=== PATIENT | female | born 1995 | race Caucasian/White ===

== ENCOUNTER → 2018-07-06 13:15 | Outpatient (CLI) | payer OTHER, SELFPAY ==
[2018-07-06 15:01] LABS: Basophils % 0.4 % (0.1-2.0); Eosinophils # 0.1 K/mm3 (0.0-0.4); Eosinophils % 1.2 % (0.1-12.0); Hematocrit 37.2 % (37.0-47.0); Hemoglobin 12.4 g/dL (12.2-16.2); Lymphocytes # 2.2 K/mm3 (0.7-4.5); Lymphocytes % 23.6 % (10-50); Mean Corpuscular HGB Conc 33.3 g/dL (31.8-35.4); Mean Corpuscular Hemoglobin 30.9 pg (27.0-31.2); Mean Corpuscular Volume 92.8 fl (81-99); Mean Platelet Volume 8.6 fl (7.4-10.4); Monocytes # 0.4 K/mm3 (0.1-1.0); Monocytes % 4.7 % (1.7-9.3); Neutrophils # 6.6 K/mm3 (1.8-7.8); Neutrophils % 70.1 % (37.0-80.0); Platelet Count 267 K/mm3 (142-424); Red Cell Distribution Width 12.7 % (11.5-17.5); White Blood Count 9.4 K/mm3 (4.8-10.8)
[2018-07-08 08:43] LABS: Rapid Plasma Reagin Ab Titer Non Reactive (NonRea<1:1)
[2018-07-08 11:10] LABS: HIV Screen 4th Generation wRfx Non Reactive (Non Reactive)
[2018-07-08 12:53] LABS: Hepatitis B Surface Antigen Negative (Negative); Hepatitis C Antibody <0.1 s/co ratio (0.0-0.9)
== END ==
PROVIDERS: Visit Provider Obstetrics & Gynecology
DX: Z34.90 Encounter for supervision of normal pregnancy, unspecified, unspecified trimester (principal)
CPT/HCPCS: 36415; 84702; 85025; 86592; 86703; 86762; 86850; 87340; 87380; G0432

== ENCOUNTER → 2018-07-28 15:01 | Outpatient (CLI) | payer OTHER, SELFPAY ==
--- NOTE | 2018-07-28 15:02 | US_ITS ---
US OB transvaginal HISTORY: ITS.REASON: US OB Dates ORDERING PHYSICIAN: Cassie Shelton MD PATIENT AGE: 23 years COMPARISON: None FINDINGS: An intrauterine gestational sac is present with a pole with a crown-rump length of 2.27cm correlating to gestational age of 9w0d. heart tones are present with an FHR of 154 bpm's. Yolk sac is noted. The amnion and chorion have not yet fused. Adnexa: 3 cm left corpus luteum. IMPRESSION: Live intrauterine gestation at 9 weeks 0 days as described above. Estimated due date is 03/02/2019
== END ==
PROVIDERS: PCP Physician Assistant; Visit Provider Obstetrics & Gynecology
DX: O26.841 Uterine size-date discrepancy, first trimester (principal)
CPT/HCPCS: 76817

== ENCOUNTER → 2018-09-02 17:55 | Outpatient (CLI) | payer OTHER, SELFPAY ==
[2018-09-05 12:28] LABS: Neisseria gonorrhoeae, NAA Negative (Negative)
== END ==
PROVIDERS: Visit Provider Obstetrics & Gynecology
DX: Z34.90 Encounter for supervision of normal pregnancy, unspecified, unspecified trimester (principal)
CPT/HCPCS: 87491; 87591

== ENCOUNTER → 2018-10-15 13:44 | Outpatient (CLI) | payer OTHER, SELFPAY ==
--- NOTE | 2018-10-15 13:45 | US_ITS ---
US OB /maternal detail: INDICATION: ITS.REASON: US OB Complete ORDERING PHYSICIAN: Cassie Shelton MD PATIENT AGE: 23 years TECHNIQUE: ultrasound transabdominal scanning. COMPARISON: No previous relevant studies. FINDINGS: Single viable intrauterine gestation. Beech position. Placenta: POST placenta grade 1. There is average amount fluid. The cervix appears satisfactory. Closed and measuring 4 cm in length. Complete survey performed and was unremarkable on the submitted images as in PACS. No discrete anomalies identified on survey imaging by technologist. Active fetus. Three-vessel cord with satisfactory umbilical cord insertion. 4- chamber heart noted. Survey of brain & ventricles unremarkable. Face and neck survey unremarkable. Diaphragm and chest views unremarkable. Abdomen: A cystic structure is noted in the right aspect of the abdomen measures approximately 1 cm. This appears to be inferior to the right kidney. Partial dilated duplication of the kidney is a consideration. No other abdominal anomalies evident. Spine: Survey of the spine satisfactory with no anomalies identified nor imaged. Both arms and legs noted. Amniotic Fluid: Adequate. Maternal adnexa: No significant findings. Measurements: Average ultrasound age 20w3d. Gestational Age 20w2d. Estimated due date by ultrasound age 0703/01/2019. Estimated weight 357 grams. BPD = 20w2d OFD = 21w0d HC = 20w0d AC = 20w2d FL = 21w0d Growth Percentile= 57% Heart Rate = 153 Cerebellum = 19w4d Humerus = 20w6d HC/AC is 1.15 (1.09-1.26). CI is 75% (70-86%). FL/BPD is 74%. FL/AC is 23%. IMPRESSION: There is a single live fetus which is in breech presentation with an average ultrasound age of 20 weeks and 3 days. All parameters correlate. A 1 cm cystic structures present in the right aspect of the abdomen which appears to be below the right kidney. Etiology is uncertain. Possibly related to a partial renal duplication with dilatation. Follow-up is recommended. Consider sweeper operator highways ultrasound.
== END ==
PROVIDERS: PCP Physician Assistant; Visit Provider Obstetrics & Gynecology
DX: Z36.0 Encounter for antenatal screening for chromosomal anomalies (principal)
CPT/HCPCS: 76811

== ENCOUNTER → 2018-11-20 09:22 | Outpatient (CLI) | payer OTHER, SELFPAY ==
[2018-11-20 10:17] LABS: Basophils % 0.2 % (0.1-2.0); Eosinophils # 0.1 K/mm3 (0.0-0.4); Eosinophils % 1.2 % (0.1-12.0); Hematocrit 36.9 % (37.0-47.0); Hemoglobin 12.8 g/dL (12.2-16.2); Lymphocytes # 1.6 K/mm3 (0.7-4.5); Lymphocytes % 16.9 % (10-50); Mean Corpuscular HGB Conc 34.8 g/dL (31.8-35.4); Mean Corpuscular Hemoglobin 32.5 pg (27.0-31.2); Mean Corpuscular Volume 93.4 fl (81-99); Monocytes # 0.4 K/mm3 (0.1-1.0); Monocytes % 4.1 % (1.7-9.3); Neutrophils # 7.1 K/mm3 (1.8-7.8); Neutrophils % 77.4 % (37.0-80.0); Platelet Count 208 K/mm3 (142-424); Red Blood Count 3.95 M/mm3 (4.20-5.40); Red Cell Distribution Width 13.5 % (11.5-17.5); White Blood Count 9.2 K/mm3 (4.8-10.8)
== END ==
PROVIDERS: Visit Provider Obstetrics & Gynecology
DX: Z34.90 Encounter for supervision of normal pregnancy, unspecified, unspecified trimester (principal)
CPT/HCPCS: 36415; 85025

== ENCOUNTER → 2018-12-04 07:23 | Outpatient (CLI) | payer OTHER, SELFPAY ==
[2018-12-04 08:37] LABS: Glucose,Fasting 85 mg/dL (60-105)
[2018-12-04 10:10] LABS: Glucose 1 Hour 125 mg/dL (74-106)
== END ==
PROVIDERS: PCP Physician Assistant; Visit Provider Obstetrics & Gynecology
DX: Z34.90 Encounter for supervision of normal pregnancy, unspecified, unspecified trimester (principal)
CPT/HCPCS: 36415; 82951

== ENCOUNTER → 2019-02-03 16:30 | Outpatient (CLI) | payer OTHER, SELFPAY | PROVIDERS: Visit Provider Obstetrics & Gynecology | DX: Z34.90 Encounter for supervision of normal pregnancy, unspecified, unspecified trimester (principal) | CPT/HCPCS: 86403 ==

== ENCOUNTER → 2019-02-15 13:35 | Outpatient (CLI) | payer OTHER, SELFPAY ==
--- NOTE | 2019-02-15 13:37 | US_ITS ---
US OB BPP w/Fet-Mat S/D: Indication: ITS.REASON: US OB BPP Growth,S/D Ratio- SGA ORDERING PHYSICIAN: Bert Ravi MD PATIENT AGE: 23 years FINDINGS: The following parameters are obtained: Average ultrasound age is 37w3d. Estimated due date by ultrasound is 03/05/2019. Estimated weight is 3224 grams. This is 52nd percentile. BPD: 37w2d OFD: 37w6d HC: 36w4d AC: 37w5d FL: 37w5d heart rate: 152 bpm. HC/AC: 0.96 (0.92-1.05) Cephalic index: 81% (70-86%) FL/BPD: 80% (71-87%) FL/AC: 22% (20-24%) Amniotic fluid index: 10 cm Qualitative AFV: 2 breathing movements: 2 Gross body movements: 2 Tone: 2 Biophysical profile score: 8/8 Doppler evaluation of the umbilical artery: SD ratio: 2.2 Resistive index: 0.54 No obvious anomalies evident. Placenta: Posterior High, GR2 Cervix: Appears closed and measures 4 cm IMPRESSION: There is a single live fetus which is in cephalic presentation with an average ultrasound age of 37 weeks 3 days, estimated weight 3224 g which is 52 percentile. All parameters correlate. The placenta is posterior and grade 2 Biophysical profile 8 of 8 with average amniotic fluid volume. Unremarkable Doppler evaluation of the umbilical artery
== END ==
PROVIDERS: PCP Physician Assistant; Visit Provider Nurse Practitioner Obstetrics & Gynecology
DX: O36.5990 Maternal care for other known or suspected poor fetal growth, unspecified trimester, not applicable or unspecified (principal)
CPT/HCPCS: 76811; 76819; 76820

== ENCOUNTER 2019-02-21 23:43 | Outpatient (CLI) | payer OTHER, SELFPAY ==
[2019-02-21 23:55] VITALS: BP 116/72; PULSE 105; RESP 18; TEMP 36.8; O2SAT 97; BMI 28.4
[2019-02-22 00:03] LABS: Microscopic, Urine URINE MICROSCOPIC (MICROSCOPIC)
[2019-02-22 00:04] LABS: Appearance,Urine CLEAR (Clear); Bilirubin,Urine Negative (Negative); Blood, Urine Negative (Negative); Color,Urine YELLOW (Yellow); Glucose,Urine (UA) Negative (Negative); Ketones,Urine Negative (Negative); Leukocyte Esterase,Urine Negative (Negative); Nitrate,Urine Negative (Negative); Protein,Urine Negative (Negative); Specific Gravity, Urine <= 1.005 (1.005-1.030); Urobilinogen,Urine 0.2 EU/dl (0.2)
[2019-02-22 00:07] LABS: Amphetamine/Metha Screen,Urine Negative ng/mL (<1000); Barbiturates Screen,Urine Negative ng/mL (<200); Benzodiazepines Screen,Urine Negative ng/mL (<200); Cannabinoid Screen,Urine Negative ng/mL (<50); Cocaine Screen,Urine Negative ng/mL (<300); Methadone Screen,Urine Negative ng/mL (<300); Opiate Screen,Urine Negative ng/mL (<300); Phencyclidine Screen,Urine Negative ng/mL (<25)
[2019-02-22 00:37] LABS: Fetal Membrane Rupture (Rapid) Negative (Negative)
== END 2019-02-22 01:00 | disposition home or self-care (01) ==
LOC: OBOUT 23:46 → OB 23:52
PROVIDERS: PCP Physician Assistant; Referring Provider Obstetrics & Gynecology; Visit Provider Obstetrics & Gynecology
DX: Z3A.38 38 weeks gestation of pregnancy; O60.03 Preterm labor without delivery, third trimester
CPT/HCPCS: 59025; 80305; 81001; 84112

== ENCOUNTER 2019-02-25 15:53 | Inpatient (IN) ==
[2019-02-25 16:29] LABS: Microscopic, Urine URINE MICROSCOPIC (MICROSCOPIC)
[2019-02-25 16:31] LABS: Basophils % 0.2 % (0.1-2.0); Eosinophils # 0.1 K/mm3 (0.0-0.4); Eosinophils % 1.1 % (0.1-12.0); Hematocrit 33.6 % (37.0-47.0); Hemoglobin 11.4 g/dL (12.2-16.2); Lymphocytes # 2.3 K/mm3 (0.7-4.5); Lymphocytes % 22.7 % (10-50); Mean Corpuscular HGB Conc 34.1 g/dL (31.8-35.4); Mean Corpuscular Volume 86.6 fl (81-99); Mean Platelet Volume 10.2 fl (7.4-10.4); Monocytes # 0.5 K/mm3 (0.1-1.0); Monocytes % 4.7 % (1.7-9.3); Neutrophils # 7.1 K/mm3 (1.8-7.8); Neutrophils % 71.2 % (37.0-80.0); Platelet Count 195 K/mm3 (142-424); Red Blood Count 3.88 M/mm3 (4.20-5.40)
[2019-02-25 16:34] LABS: Appearance,Urine CLEAR (Clear); Bilirubin,Urine Negative (Negative); Blood, Urine Negative (Negative); Color,Urine YELLOW (Yellow); Glucose,Urine (UA) Negative (Negative); Ketones,Urine Negative (Negative); Leukocyte Esterase,Urine Negative (Negative); Protein,Urine Negative (Negative); Specific Gravity, Urine <= 1.005 (1.005-1.030); Urobilinogen,Urine 0.2 EU/dl (0.2)
[2019-02-25 17:17] LABS: Amphetamine/Metha Screen,Urine Negative ng/mL (<1000); Benzodiazepines Screen,Urine Negative ng/mL (<200); Cannabinoid Screen,Urine Negative ng/mL (<50); Cocaine Screen,Urine Negative ng/mL (<300); Methadone Screen,Urine Negative ng/mL (<300); Opiate Screen,Urine Negative ng/mL (<300); Phencyclidine Screen,Urine Negative ng/mL (<25)
[2019-02-25 17:19] LABS: Bacteria,Urine Trace /lpf; Squamous Epithelial Cell,Urine Occasional #/hpf (0-5)
[2019-02-25 17:30] LABS: Barbiturates Screen,Urine Negative ng/mL (<200)
--- NOTE | 2019-02-26 09:17 | History & Physical Report ---
OB - H&P: HPI Antepartum - History of Present Illness Chief complaint: IOL History of present illness: 23 yo G0 for elective IOL S/P cervidil ripening of cervix last pm with intracervical balloon catheter Progressing well, with cervix 3cm this am Contractions q 2-4 minutes but not ready for epidural, per patient uncomplicated other than ultrasound finding of abdominal/pelvic mass Multiple assessments by MFM with serial ultrasounds; impression is of ovarian cyst in female fetus - History of Present Criteria for establishing EDC:: LMP confirmed by 1st trimester US care: good care Abnormal ultrasound findings: female fetus with cystic area abd/pelvis; MFM following and impression thus far is ovarian cyst () Obstetrical complications: none [facility] History I have reviewed the patient's past medical history: Yes Medical History: Denies:: Diabetes Mellitus Type 1, Diabetes Mellitus Type 2, Internal Pacemaker, Lung Disease, Seizures *Have you ever received a pneumonia vaccine?: No *Have you received a flu vaccine this season?: Yes Other Surgeries: Yes: No Previous Surgery. No: , Pacemaker Amputation: No Fractures: No - *Social History Smoking Status: Never smoker Alcohol Intake: never Substance Use Type: denies use *Occupational Status:: employed *Travel in the last 8 weeks: None Family Hx:: No significant family history VISUAL DISPLAY MANAGER history: No VISUAL DISPLAY MANAGER history : 1 Para: 0 Review of Systems - Review of Systems Review of systems:: pertinent systems reviewed and negative unless documented below CONSTITUTIONAL: no fever/chills HEENT: no oral lesions PULMONARY: no shortness of breath or difficulty breathing CV: no racing heart, palpitations or chest pain ABD: no abdominal pain, N/V : + contractions SKIN: no new rash or skin lesions EXT: no edema NEURO: no mental status changes PSYCH: no current anxiety/depression OB: normal movement Meds Home Medications Medication Instructions Recorded Confirmed Type 1 tab PO DAILY 07/29/18 02/22/19 History vitamin,calcium,cdtukhac-uuvr-xdqvl acid tablet Allergies Allergy/AdvReac Type Severity Reaction Status Date / Time No Known Allergies Allergy Verified 02/22/19 10:16 OB - H&P: Exam - Physical Exam Vital signs: Temp Pulse Resp BP Pulse Ox 98.2 F 83 16 112/70 97 02/25/19 19:45 02/25/19 19:45 02/25/19 19:45 02/25/19 19:45 02/25/19 19:45 Narrative: CONSTITUTIONAL: no acute distress HEENT: mucous membranes moist PULMONARY: breathing unlabored without audible wheezes CV: no tachycardia or visible JVD; normal LE peripheral pulses ABD: soft, NT/ND, no guarding. Gravid uterus. : cervix 4/80/0 AROM with clear fluid; IUPC placed without difficulty or complication SKIN: no visible rash or lesions HEME: no lymphadenopathy EXT: 1+ edema LEs NEURO: alert/oriented, no altered mental status PSYCH: appropriate mood and demeanor without visible anxiety/depression NST: Basline: 140 Variability: moderate Accelerations: yes Decelerations: no Impression: Reactive, Category 1 OB - Results - Labs Labs: Short CBC 02/25/19 Range/Units 16:20 WBC 10.0 (4.8-10.8) K/mm3 Hgb 11.4 L (12.2-16.2) g/dL Hct 33.6 L (37.0-47.0) % Plt Count 195 (142-424) K/mm3 Urine 02/25/19 Range/Units 16:25 Urine Color Yellow (Yellow) Urine Appearance Clear (Clear) Urine pH 7.0 (5.0-8.5) Ur Specific [place] <= 1.005 (1.005-1.030) Urine Protein Negative (Negative) Urine Glucose (UA) Negative (Negative) - Imaging and Cardiology nst Status: image reviewed by me OB - A/P Antepartum (1) 39 weeks gestation of Current visit: Yes Status: Acute (2) Abnormal ultrasonic finding on screening of mother Problem details: probable right ovarian cyst () follow up ultrasound with M scheduled 29 wks Current visit: No Status: Acute - Additional Plan Additional Information:: Elective IOL Continue pitocin augmentation status reassuring; continuous monitoring throughout labor Epidural at request Anticipate
--- NOTE | 2019-02-26 09:20 | Progress Note ---
[facility] Anesthesia Checklist - Structural Data Admitted From: Home Planned Operative Procedure/s: labor epidural Consent for Planned Operative Procedure(s) Verified: Yes - Airway Assessment C-Spine Mobility Assessed: Yes TMJ Mobility Assessed: Yes Dentition: Good Dentition - Neurological Assessment Level of Consciousness: Awake, Alert, Appropriate - Anesthesia Plan Anesthesia Risk discussed: Yes Anesthesia Plan: Verified ASA Class: II Anesthesia Type: Epidural [facility] History I have reviewed the patient's past medical history: Yes Medical History: Reports:: Coronary Artery Disease Denies:: Diabetes Mellitus Type 1, Diabetes Mellitus Type 2, Internal Pacemaker, Lung Disease, Seizures *Have you ever received a pneumonia vaccine?: No *Have you received a flu vaccine this season?: Yes Other Surgeries: Yes: No Previous Surgery. No: , Pacemaker Amputation: No Fractures: No - *Social History Smoking Status: Never smoker Alcohol Intake: never Substance Use Type: denies use *Occupational Status:: employed *Travel in the last 8 weeks: None Family Hx:: No significant family history Para: 0
--- NOTE | 2019-02-26 13:37 | Procedure Note ---
- Delivery Note Delivery Date:: 02/26/19 Delivery Time:: 10:52 Anesthesia Type: Epidural Was labor medically induced?: Yes Induction method: per pitocin protocol Gestational age (weeks): 39 delivered prior to 39 weeks?: No Gender: Female at 1 minute: 9 at 5 minutes: 9 Delivery Procedure:: Spontaneous vaginal delivery of a vigorous liveborn female over intact perineum. Delivery uncomplicated No nuchal cord, no shoulder dystocia with delivery placed in MAKAYLA with mother immediately after umbilical cord clamped/cut, with standard nursing assessment performed Apgars: 9 & 9 Placenta spontaneously expressed and examined; noted to be complete/intact. Vulva, vagina, and cervix inspected; 1st degree perineal and right periurethral lacerations repaired with 2-0 vicryl EBL: 300 cc All sponge/needle/instrument counts correct at conclusion of procedure Disposition: Mom/baby stable to recovery in LDRP Placental Delivery Description: Spontaneous
[2019-02-27 06:34] LABS: Hematocrit 33.6 % (37.0-47.0)
--- NOTE | 2019-02-27 12:41 | Progress Note ---
Internal Medicine - PN: Subj *Date: 02/27/19 *Time: 12:38 Interval history: PPD #1 No unusual complaints Tolerating regular diet, ambulating and voiding without difficulty Lochia appropriate Hgb 11.0 (11.4 at admission) Exam Vital signs and Labs for Last 24 Hours: Temp Pulse Resp BP Pulse Ox 98.2 F 83 16 112/70 97 02/25/19 19:45 02/25/19 19:45 02/25/19 19:45 02/25/19 19:45 02/25/19 19:45 Laboratory Results - last 24 hr 02/27/19 06:08: Hgb 11.0 L, Hct 33.6 L I & O for Last 24 hours: Intake & Output 02/25/19 02/26/19 02/27/19 02/28/19 11:59 11:59 11:59 11:59 Output Total 750 / 750 Balance -750 / -750 Weight 176 lb Narrative: CONSTITUTIONAL: no acute distress HEENT: mucous membranes moist PULMONARY: breathing unlabored without audible wheezes CV: no tachycardia or visible JVD; normal LE peripheral pulses ABD: soft, NT/ND, no guarding : fundus firm at/below umbilicus SKIN: no visible rash or lesions EXT: 1+ edema LEs NEURO: alert/oriented, no altered mental status PSYCH: appropriate mood and demeanor without anxiety/depression Assessment and Plan (1) 39 weeks gestation of Current visit: Yes Status: Acute Category: Medical Code(s): Z3A.39 - 39 weeks gestation of (2) Normal vaginal delivery Current visit: Yes Status: Acute Category: Medical Code(s): O80 - Encounter for full-term uncomplicated delivery (3) Anemia associated with acute blood loss Current visit: Yes Status: Acute Category: Medical Code(s): D62 - Acute posthemorrhagic anemia (4) Abnormal ultrasonic finding on screening of mother Problem details: probable right ovarian cyst () follow up ultrasound with MFM scheduled 29 wks Current visit: Yes Status: Acute Category: Medical Code(s): O28.3 - Abnormal ultrasonic finding on screening of mother - Assessment and plan all Dx Assessment and Plan for all problems:: Routine care Continue PNV and FeSO4 Peds to f/u regarding cystic pelvic mass Anticipate discharge home tomorrow
[2019-02-27 18:46] VITALS: BP 110/77
--- NOTE | 2019-02-28 11:55 | Discharge Summary ---
General - General Admission date:: 02/25/19 Discharge date: 02/28/19 HPI HPI: Elective IOL at 39+ wks Normal without complication course uneventful Tolerating regular diet, ambulating & voiding without difficulty Discharged home on PPD #2 Hospital Course Hospital Course: per HPI Rhogam Administration: Not Indicated Objective Vital signs: Temp Pulse Resp BP Pulse Ox 98.4 F 62 16 110/77 99 02/27/19 08:00 02/27/19 08:00 02/27/19 08:00 02/27/19 08:00 02/27/19 08:00 Narrative: CONSTITUTIONAL: no acute distress HEENT: mucous membranes moist PULMONARY: breathing unlabored without audible wheezes CV: no tachycardia or visible JVD; normal LE peripheral pulses ABD: soft, NT/ND, no guarding : fundus firm at/below umbilicus SKIN: no visible rash or lesions EXT: 1+ edema LEs NEURO: alert/oriented, no altered mental status PSYCH: appropriate mood and demeanor without anxiety/depression DS: Diagnosis - Discharge Diagnosis (1) 39 weeks gestation of Status: Acute (2) Normal vaginal delivery Status: Acute (3) Anemia associated with acute blood loss Status: Acute (4) Abnormal ultrasonic finding on screening of mother Status: Acute Problem details: probable right ovarian cyst () follow up ultrasound with MFM scheduled 29 wks Discharge Plan - Patient Discharge Instructions ACTIVITY: Continue current activity DIET: regular diet Additional Instructions: NO HEAVY LIFTING OR STRENUOUS ACTIVITY NOTHING IN VAGINA FOR [address] W[address] FOLLOW-UP WITH DR. BRAUN IN 6 WEEKS Patient Instructions: Depression, [facility] Post Discharge Instructions - Follow up Plan Disposition: Home, Self-Correction Medications: Home Medications Medication Instructions Recorded Confirmed Type 1 tab PO DAILY 07/29/18 02/26/19 History vitamin,calcium,xvdwdogn-ttsj-blpcz acid tablet Ibuprofen [Motrin 400mg 800 mg PO Q6HP PRN #30 tab 02/28/19 Rx tablet] Oxycodone HCl [OxyIR 5mg tablet] 5 mg PO Q4HP PRN #20 tab 02/28/19 Rx Prescriptions/Medication Reconciliation: New Oxycodone HCl [OxyIR 5mg tablet] 5 mg PO Q4HP PRN #20 tab PRN Reason: Moderate Pain Ibuprofen [Motrin 400mg tablet] 800 mg PO Q6HP PRN #30 tab PRN Reason: Mild To Moderate Pain Continued vitamin,calcium,wqukqhvr-cgtc-qzczt acid tablet 1 tab PO DAILY
== END 2019-02-28 17:20 | disposition home or self-care (01) | DRG 806 ==
LOC: OB 15:53
PROVIDERS: ADMIT Obstetrics & Gynecology; ATTEND Obstetrics & Gynecology
CPT/HCPCS: 36415; 59025; 80305; 81001; 85014; 85018; 85025; 86850; 94761; C1758; J0595

== ENCOUNTER → 2019-08-31 12:09 | Outpatient (CLI) | payer OTHER, SELFPAY ==
--- NOTE | 2019-08-31 12:11 | XR_ITS ---
PROCEDURE: XR CHEST 2V CLINICAL HISTORY: right rib pain COMPARISON: No exams were available for comparison FINDINGS: The cardiomediastinal silhouette and pulmonary vascularity are within normal limits. The lungs are clear without infiltrates, suspicious nodules, or pleural effusions. No acute bony abnormalities. There is moderate levo scoliotic curvature of the spine apex at the thoracolumbar junction. IMPRESSION: No acute findings. Dictated by: Samuel Acuña 08/31/2019 12:46 Electronically signed by Samuel Acuña in [place] 08/31/2019 12:46
== END ==
PROVIDERS: PCP Physician Assistant; Visit Provider Urology
DX: R07.81 Pleurodynia (principal)
CPT/HCPCS: 71046

== ENCOUNTER 2020-01-05 13:34 | Emergency (ER) | payer OTHER, SELFPAY ==
[2020-01-05 13:37] VITALS: BP 111/63; PULSE 126; RESP 16; TEMP 36.7; O2SAT 98; BMI 24.2
--- NOTE | 2020-01-05 13:46 | [facility].EDUTC ---
[facility] [place] Disposition Clinical Impression: Mastitis Disposition: Home, Self-Care Condition on Discharge: Good (ma) Instructions: Mastitis, DI for Mastitis, Amoxicillin and Clavulanic Acid Additional Instructions: If mastitis, continue to breastfeed or pump, no need to dispose of breastmilk Warm compresses and massage, wearing supportive bra Take medication as prescribed Over the counter Motrin and/or Tylenol for fever or pain if your doctor has told you that you can take it Antibiotics help treat or prevent a bacterial infection. Acetaminophen decreases pain and fever. It is available without a doctor's order. Ask how much to take and how often to take it. Follow directions. Acetaminophen can cause liver damage if not taken correctly. NSAIDs , such as ibuprofen, help decrease swelling, pain, and fever. This medicine is available with or without a doctor's order. NSAIDs can cause stomach bleeding or kidney problems in certain people. If you take blood thinner medicine, always ask your healthcare provider if NSAIDs are safe for you. Always read the medicine label and follow directions. Take your medicine as directed. Contact your healthcare provider if you think your medicine is not helping or if you have side effects. Tell him or her if you are allergic to any medicine. Keep a list of the medicines, vitamins, and herbs you take. Include the amounts, and when and why you take them. Bring the list or the pill bottles to follow-up visits. Carry your medicine list with you in case of an emergency. Continue to breastfeed from the affected breast. This will help to prevent an abscess from forming. Breastfeed your baby on the affected side first. Apply a warm, wet cloth on your breast or take a warm shower before you feed your baby. This can help increase your milk flow. If it is painful when you breastfeed from the affected breast, feed your baby from the other breast first. Pump the affected side to completely drain your breast after , if needed. You may save the pumped milk to feed your baby. Use different positions to breastfeed. Change the position of your baby during feedings. This may help to relieve your discomfort. Apply heat on your breast for 20 to 30 minutes every 2 hours for as many days as directed. Heat helps decrease pain. pply ice after feedings. Apply ice on your breast for 15 to 20 minutes every hour or as directed. Use an ice pack, or put crushed ice in a plastic bag. Cover it with a towel. Ice helps prevent tissue damage and decreases swelling and pain. Massage your breast. Gently massage your breast before and during to help drain your milk. Drink liquids as directed. Ask how much liquid to drink each day and which liquids are best for you. Rest as needed. Do not sleep on your stomach until your infection is gone. Follow up in the next 48-72 hours if any worsening or no improvement REturn if needed Straight to ER if any life threatening symptoms Prescriptions: Amoxicillin/Potassium Clav [Augmentin 875-125 Tablet] 1 tab PO Q12H 10 Days #20 tab Transmission Status: Sent to Clinic Pharm[facility] AMT Referrals: Imani Puente PA [Primary Care Provider] - As needed Time of Disposition: 13:59 Medical Decision Making - Ac Inquiry Pt receiving controlled substance: No Ac was queried for this patient: No Vital Signs: 01/05/20 13:37 Temperature 98.1 F Temperature Source Oral Pulse Rate [Right Brachial] 126 H Respiratory Rate 16 Blood Pressure [Right Arm] 111/63 Blood Pressure Mean [Right Arm] 79 Blood Pressure Source [Right Arm] Automatic Cuff Blood Pressure Position [Right Arm] Sitting 02 Sat by Pulse Oximetry 98 Oxygen Delivery Method Room Air [facility] [place] HPI - General Stated complaint: breast pain Time Seen by Provider: 01/05/20 13:46 Mode of Arrival: Ambulatory Source of Information: Patient Limitations: No Limitations Description of Symptoms (Recalled from Triage Doc. by RN): PT ad
[2020-01-05 14:19] VITALS: BP 115/60; PULSE 87; RESP 16; TEMP 36.7; O2SAT 98
== END 2020-01-05 14:20 | disposition home or self-care (01) ==
PROVIDERS: Emergency Provider Nurse Practitioner; PCP Physician Assistant
DX: N61.0 Mastitis without abscess (principal)
CPT/HCPCS: 99201

== ENCOUNTER → 2020-03-17 13:57 | Outpatient (CLI) | payer OTHER, SELFPAY ==
[2020-03-17 14:23] LABS: Basophils % 0.5 % (0.1-2.0); Eosinophils # 0.3 K/mm3 (0.0-0.4); Eosinophils % 3.6 % (0.1-12.0); Hematocrit 40.4 % (37.0-47.0); Hemoglobin 13.9 g/dL (12.2-16.2); Lymphocytes # 2.3 K/mm3 (0.7-4.5); Lymphocytes % 29.9 % (10-50); Mean Corpuscular HGB Conc 34.3 g/dL (31.8-35.4); Mean Corpuscular Hemoglobin 31.6 pg (27.0-31.2); Mean Corpuscular Volume 92.1 fl (81-99); Mean Platelet Volume 8.9 fl (7.4-10.4); Monocytes # 0.3 K/mm3 (0.1-1.0); Neutrophils # 4.7 K/mm3 (1.8-7.8); Platelet Count 240 K/mm3 (142-424); Red Blood Count 4.38 M/mm3 (4.20-5.40); Red Cell Distribution Width 12.6 % (11.5-17.5); White Blood Count 7.6 K/mm3 (4.8-10.8)
[2020-03-17 15:47] LABS: HCG,Quantitative 1095 mIU/ml (0-5.42)
[2020-03-17 17:59] LABS: Benzodiazepines Screen,Urine Negative ng/ml (<200)
[2020-03-17 18:00] LABS: Barbiturates Screen,Urine Negative ng/ml (<200)
[2020-03-17 18:02] LABS: Cannabinoid Screen,Urine Negative ng/ml (<50); Cocaine Screen,Urine Negative ng/ml (<300)
[2020-03-17 18:03] LABS: Methadone Screen,Urine Negative ng/ml (<300)
[2020-03-17 18:04] LABS: Opiate Screen,Urine Negative ng/ml (<300); Phencyclidine Screen,Urine Negative ng/ml (<25)
[2020-03-19 09:38] LABS: Rapid Plasma Reagin Ab Titer Non Reactive (NonRea<1:1)
[2020-03-19 16:09] LABS: HIV Screen 4th Generation wRfx Non Reactive (Non Reactive); Hepatitis B Surface Antigen Negative (Negative); Hepatitis C Antibody 0.1 s/co ratio (0.0-0.9)
[2020-03-20 10:13] LABS: Rubella Antibodies, IgG 1.72 index (Immune >0.99)
== END ==
PROVIDERS: Visit Provider Obstetrics & Gynecology
DX: Z34.90 Encounter for supervision of normal pregnancy, unspecified, unspecified trimester (principal)
CPT/HCPCS: 36415; 80305; 84702; 85025; 86592; 86703; 86762; 86850; 87340; 87380; G0432

== ENCOUNTER → 2020-07-06 12:58 | Outpatient (CLI) | payer OTHER, SELFPAY ==
--- NOTE | 2020-07-06 12:58 | US_ITS ---
PROCEDURE: US OB /MATERNAL DETAIL CLINICAL INDICATION: US OB Complete Anatomy exam COMPARISON: US OBBIOCOMP US OB BPP w/Fet-Mat S/D from 02/15/2019 FINDINGS: There is a single live fetus which is in cephalic presentation. Cervix is closed and measures 4 cm transabdominal. The placenta is posterior and grade 1. Complete survey performed and was unremarkable on the submitted images as in PACS. No discrete anomalies identified on survey imaging by technologist. Active fetus. Three-vessel cord with satisfactory umbilical cord insertion. 4- chamber heart noted. Survey of brain & ventricles Unremarkable. Face and neck survey unremarkable. Diaphragm and chest views unremarkable. Abdomen: Both kidneys noted and unremarkable. Stomach noted and satisfactory. Spine: Survey of the spine satisfactory with no anomalies identified nor imaged. Both arms and legs noted. Amniotic Fluid: Adequate. Maternal adnexa: No significant findings. Measurements: Average ultrasound age 20weeks 4days. Gestational Age 20weeks 4days Estimated due date by ultrasound age 0411/19/2020. Estimated weight 371g BPD = 20weeks 3days OFD = 20weeks 4days HC = 19weeks 5days AC = 20weeks 6days FL = 21weeks Growth Percentile= 52Percent% Heart Rate = 150bpm Cerebellum = 20weeks Humerus = 20weeks 2days HC/AC is 1.1 CI is 0.78 FL/BPD is 0.73 FL/AC is 0.22 IMPRESSION: There is a single live fetus in cephalic presentation. Average ultrasound age is 20 weeks 4 days. No obvious anomalies. Please see above for detail. Dictated by: Gavin Titus MD 07/07/2020 10:52 Gavin Titus MD in [facility] 07/07/2020 10:52
== END ==
PROVIDERS: PCP Physician Assistant; Visit Provider Obstetrics & Gynecology
DX: Z36.0 Encounter for antenatal screening for chromosomal anomalies (principal)
CPT/HCPCS: 76811

== ENCOUNTER 2020-07-23 17:42 | Emergency (ER) | payer OTHER, SELFPAY ==
[2020-07-23 18:50] VITALS: BP 119/62; PULSE 101; RESP 16; TEMP 37; O2SAT 100; BMI 30.2
--- NOTE | 2020-07-23 19:19 | HMH.EDUTC ---
[facility] – [place] Disposition Clinical Impression: Strep sore throat, Exposure to COVID-19 virus Disposition: Home, Self-Care Condition on Discharge: Good Instructions: DI for Strep Throat, Preventing the Spread of Coronavirus Discharge Instructions Additional Instructions: Start antibiotics today be sure to take it as ordered with the full length of time although you should start feeling better in 24-48 hours. Change toothbrush and toothpaste 24-48 hours after starting antibiotics Tylenol or Motrin as needed for fever or pain Encourage fluids, water, Gatorade, Powerade, try cold fluids, popsicles, ice cream will make it feel better You are contagious for 24 hours. Avoid kissing anyone, no eating or drinking after anyone. You are contagious. Follow-up the ER for new or worsening symptoms or no noticeable improvement over the next 24-48 hours. Follow-up with PCP this week. isolate until test results are known neg Prescriptions: Azithromycin [Zithromax 250mg tab] 250 mg PO DIRECTED #6 tab Prescription Printed Referrals: Imani Puente PA [Primary Care Provider] - Forms: Work/School Release Time of Disposition: 19:23 Medical Decision Making - Ac Inquiry Pt receiving controlled substance: No Vital Signs: 07/23/20 18:50 Temperature 98.6 F Temperature Source Oral Pulse Rate [Right Brachial] 101 H Respiratory Rate 16 Blood Pressure [Right Arm] 119/62 Blood Pressure Mean [Right Arm] 81 Blood Pressure Source [Right Arm] Automatic Cuff Blood Pressure Position [Right Arm] Sitting 02 Sat by Pulse Oximetry 100 Oxygen Delivery Method Room Air Orders (Tests/Meds): ORDERS Category Date Time Status Covid-19 Nasal PCR Sendout Solitario Routine Lab 07/23/20 19:09 Ordered [facility] – [place] HPI - General Chief complaint: Urgent Treatment Center Stated complaint: COVID and Strep Test Time Seen by Provider: 07/23/20 19:19 Mode of Arrival: Ambulatory Source of Information: Patient Limitations: No Limitations Description of Symptoms (Recalled from Triage Doc. by RN): PATIENT REQUESTING COVID TEST D/T EXPOSURE; C/O SORE THROAT HEENT Symptoms (Recalled from RN notes): Yes Resp Symptoms (Recalled from RN notes): No Skin Symptoms (Recalled from RN notes): No MS Symptoms (Recalled from RN notes): No Functional Status (Recalled from RN notes): WNL - History of Present Illness Provider Complaint: 25 yr old female presnets for covid test and strep. Has been exposed to covid and positive for strep. pt states she usually test neg for strep - Related Data Home Medications Medication Instructions Recorded Confirmed prenat.vits,michel,[id number] 1 tab PO DAILY 05/04/20 Previous Rx's Medication Instructions Recorded Azithromycin [Zithromax 250mg 250 mg PO DIRECTED #6 tab 07/23/20 tab] Allergies Allergy/AdvReac Type Severity Reaction Status Date / Time No Known Allergies Allergy Verified 07/10/20 15:08 - Worker's Comp Is this a Worker's Comp case?: No [facility] History - Hepatitis A Screen Drug use history?: No High risk sexual behaviors?: No History of sexually transmitted infection?: No Currently employed?: No Childcare worker?: No Do you have indoor plumbing?: Yes Do you have electricity?: Yes Attestation statement:: This patient has been screened for Hepatitis A risk factors. I have reviewed the patient's past medical history: Yes Medical History: Reports:: Coronary Artery Disease Denies:: Cancer, Diabetes Mellitus Type 1, Diabetes Mellitus Type 2, Internal Pacemaker, Lung Disease, MRSA, Seizures Other Surgeries: Yes: No Previous Surgery. No: , Pacemaker Amputation: No Fractures: No - Social History Smoking Status: Never smoker Alcohol Intake: never Substance Use Type: denies use Occupational Status: other Housing: house Household Members: family Family Hx:: No significant family history HIGH SCHOOL COACH history: No HIGH SCHOOL COACH history ROS Obtained: Yes Systems reviewed as appro
[2020-07-23 19:25] VITALS: BP 119/62; PULSE 101; RESP 16; TEMP 37; O2SAT 100
[2020-07-25 09:08] LABS: UTC Strep Screen (Rapid) Negative (Negative)
[2020-07-25 13:55] LABS: Covid-19 Nasal PCR Sendout Lex NOT DETECTED
== END 2020-07-23 19:30 | disposition home or self-care (01) ==
PROVIDERS: Emergency Provider Nurse Practitioner Family; PCP Physician Assistant
DX: Z20.828 Contact with and (suspected) exposure to other viral communicable diseases (principal); J02.9 Acute pharyngitis, unspecified
CPT/HCPCS: 87880; 99202; U0004

== ENCOUNTER → 2020-10-12 14:43 | Outpatient (CLI) | payer OTHER, SELFPAY ==
--- NOTE | 2020-10-12 14:43 | US_ITS ---
PROCEDURE: US OB FOLLOW UP CLINICAL INDICATION: US OB-growth PAYTON- SGA COMPARISON: US US OB /MATERNAL DETAIL from 07/06/2020 FINDINGS: There is a single live fetus which is in cephalic presentation. The cervix is closed and measures 4 cm. The placenta is posterior and grade 2. The amniotic fluid index is 12 cm. Measurements: Average ultrasound age 35weeks 2days. Gestational Age 34weeks 4days Estimated due date by ultrasound age 0311/14/2020. Estimated weight 2,539g BPD = 36weeks 3days OFD = 34weeks 2days HC = 34weeks 6days AC = 34weeks 5days FL = 34weeks 6days Growth Percentile= 55Percent% Heart Rate = 134bpm HC/AC is 1.01 CI is 0.83 FL/BPD is 0.75 FL/AC is 0.22 IMPRESSION: Live IUP at 35 weeks 2 days with an estimated weight of 2139 g which is 55 percentile. PAYTON 12 cm. Posterior grade 2 placenta Dictated by: Gavin Titus MD 10/13/2020 13:53 Gavin Titus MD in [place] 10/13/2020 13:53
== END ==
PROVIDERS: PCP Physician Assistant; Visit Provider Obstetrics & Gynecology
DX: O36.5990 Maternal care for other known or suspected poor fetal growth, unspecified trimester, not applicable or unspecified (principal)
CPT/HCPCS: 76816

== ENCOUNTER → 2020-10-26 16:52 | Outpatient (CLI) | payer OTHER, SELFPAY | LOC: LAB 16:53 → LAB.DROPOF 16:58 | PROVIDERS: Visit Provider Obstetrics & Gynecology | DX: Z34.90 Encounter for supervision of normal pregnancy, unspecified, unspecified trimester (principal) | CPT/HCPCS: 86403 ==

== ENCOUNTER → 2020-11-11 14:44 | Outpatient (CLI) | payer OTHER, SELFPAY | PROVIDERS: PCP Physician Assistant; Visit Provider Obstetrics & Gynecology | DX: Z34.90 Encounter for supervision of normal pregnancy, unspecified, unspecified trimester (principal) | CPT/HCPCS: U0003 ==

== ENCOUNTER 2020-11-13 05:16 | Inpatient (IN) | payer OTHER, SELFPAY ==
[2020-11-13 05:19] VITALS: BMI 29.5
[2020-11-13 06:09] LABS: Basophils % 0.4 % (0.1-2.0); Eosinophils # 0.1 K/mm3 (0.0-0.4); Eosinophils % 1.2 % (0.1-12.0); Hematocrit 36.9 % (37.0-47.0); Hemoglobin 12.9 g/dL (12.2-16.2); Lymphocytes # 2.5 K/mm3 (0.7-4.5); Lymphocytes % 27.3 % (10-50); Mean Corpuscular HGB Conc 34.9 g/dL (31.8-35.4); Mean Corpuscular Hemoglobin 32.5 pg (27.0-31.2); Mean Corpuscular Volume 93.2 fl (81-99); Mean Platelet Volume 10.2 fl (7.4-10.4); Monocytes # 0.5 K/mm3 (0.1-1.0); Monocytes % 5.3 % (1.7-9.3); Neutrophils # 5.9 K/mm3 (1.8-7.8); Neutrophils % 65.7 % (37.0-80.0); Platelet Count 177 K/mm3 (142-424); Red Blood Count 3.96 M/mm3 (4.20-5.40); Red Cell Distribution Width 13.6 % (11.5-17.5)
[2020-11-13 06:11] LABS: Microscopic, Urine URINE MICROSCOPIC (MICROSCOPIC)
[2020-11-13 06:37] LABS: Appearance,Urine CLEAR (Clear); Bilirubin,Urine Negative (Negative); Blood, Urine Negative (Negative); Color,Urine YELLOW (Yellow); Glucose,Urine (UA) Negative (Negative); Ketones,Urine Negative (Negative); Leukocyte Esterase,Urine Negative (Negative); Nitrate,Urine Negative (Negative); Protein,Urine Negative (Negative); Urobilinogen,Urine 0.2 EU/dl (0.2)
[2020-11-13 06:43] VITALS: BP 123/60; PULSE 80; RESP 18; TEMP 36.8; O2SAT 99; BMI 29.5
[2020-11-13 06:45] LABS: RBC,Urine Occasional #/hpf (0-3)
[2020-11-13 07:09] LABS: Amphetamine/Metha Screen,Urine Negative ng/ml (<1000)
[2020-11-13 07:10] LABS: Barbiturates Screen,Urine Negative ng/ml (<200); Benzodiazepines Screen,Urine Negative ng/ml (<200)
[2020-11-13 07:11] LABS: Cannabinoid Screen,Urine Negative ng/ml (<50)
[2020-11-13 07:12] LABS: Cocaine Screen,Urine Negative ng/ml (<300); Methadone Screen,Urine Negative ng/ml (<300)
[2020-11-13 07:13] LABS: Opiate Screen,Urine Negative ng/ml (<300); Phencyclidine Screen,Urine Negative ng/ml (<25)
[2020-11-13 07:18] VITALS: BP 108/68; PULSE 69; RESP 16; TEMP 36.9; O2SAT 98
--- NOTE | 2020-11-13 08:52 | HMH.OBAPHP ---
OB - H&P: HPI Antepartum - History of Present Illness Chief complaint: Induction of labor History of present illness: 25 yo @ 39 08/24 for scheduled elective induction of labor has been uncomplicated Irregular contractions; denies LOF or vaginal bleeding Normal movement GBS negative - History of Present Criteria for establishing EDC:: LMP confirmed by 1st trimester US care: good care Obstetrical complications: none [facility] History I have reviewed the patient's past medical history: Yes Medical History: Denies:: Cancer, Diabetes Mellitus Type 1, Diabetes Mellitus Type 2, Internal Pacemaker, Lung Disease, MRSA, Seizures *Have you ever received a pneumonia vaccine?: No *Have you received a flu vaccine this season?: Yes Other Surgeries: Yes: No Previous Surgery. No: , Pacemaker Amputation: No Fractures: No - *Social History Smoking Status: Never smoker Alcohol Intake: never Substance Use Type: denies use *Occupational Status:: employed Housing: house Household Members: family *Travel in the last 8 weeks: None Family Hx:: No significant family history SENIOR FIREWALL ENGINEER history: No SENIOR FIREWALL ENGINEER history : 2 Para: 1 LMP comments: Review of Systems - Review of Systems Review of systems:: pertinent systems reviewed and negative unless documented below - *Genitourinary Reports other (irregular contractions) Meds Home Medications Medication Instructions Recorded Confirmed Type prenat.vits,michel,zro-ymwb-vjmmy 1 tab PO DAILY 05/04/20 11/13/20 History Allergies Allergy/AdvReac Type Severity Reaction Status Date / Time No Known Allergies Allergy Verified 11/09/20 14:51 OB - H&P: Exam - Physical Exam Vital signs: Temp Pulse Resp BP Pulse Ox 98.4 F 69 16 108/68 L 98 11/13/20 07:18 11/13/20 07:18 11/13/20 07:18 11/13/20 07:18 11/13/20 07:18 - Constitutional no acute distress - Routine HEENT Exam Head: Present: normocephalic, atraumatic Eye: Absent: conjunctival icterus, scleral injection ENT: Present: mucous membranes moist - Routine Chest/Breast/Axilla Exam Chest wall: Absent: tenderness - Routine Respiratory Exam Present: CTA bilaterally. Absent: respiratory distress - Routine Cardiovascular Exam Present: RRR - Routine Abdominal Exam Present: soft. Absent: tenderness, distended - Routine Exam Comments: cervix 1-2/50% - Routine Extremities Exam Absent: edema - Routine Back/Spine/Pelvis Exam Back/Spine: Absent: CVA tenderness - Routine Skin Exam Absent: rash - Routine Neurological Exam Present: alert, oriented X3 - Routine Psychiatric Exam Present: normal affect OB - Results - Labs Labs: Short CBC 11/13/20 Range/Units 05:55 WBC 9.0 (4.8-10.8) K/mm3 Hgb 12.9 (12.2-16.2) g/dL Hct 36.9 L (37.0-47.0) % Plt Count 177 (142-424) K/mm3 Urine 11/13/20 Range/Units 05:55 Urine Color Yellow (Yellow) Urine Appearance Clear (Clear) Urine pH 7.0 (5.0-8.5) Ur Specific [place] 1.010 (1.005-1.030) Urine Protein Negative (Negative) Urine Glucose (UA) Negative (Negative) OB - A/P Antepartum (1) 39 weeks gestation of Status: Acute - Additional Plan Additional Information:: Continue Pitocin augmentation Continuous movement Epidural at patient request
[2020-11-13 11:43] VITALS: BP 113/65; PULSE 78; RESP 17; TEMP 36.4; O2SAT 98
--- NOTE | 2020-11-13 13:29 | HMH.LABNOT ---
Labor Note - Subjective: Date: 11/13/20 Time: 13:29 regular contraction Comment:: mild-moderate contractions; not uncomfortable yet - Objective: NST:: Reactive Contractions:: every 4-5 minutes Cervical Dilation:: 3 Effacement:: 75% Station: -2 Membranes: artificially ruptured (AROM, clear fluid. IUPC placed without complication.) - Fetus: Monitoring?: Yes monitoring type:: External (category 1 tracing) - Assessment: Patient Problems: All Active Problems 39 weeks gestation of (Acute) Strep sore throat (Acute) Exposure to COVID-19 virus (Acute) (Acute) Family history of breast cancer (Acute) - Plan: Comment:: continue pitocin epidural at patient request continuous monitoring
[2020-11-13 15:51] VITALS: BP 125/70; PULSE 77; RESP 18; TEMP 37.1; O2SAT 100
--- NOTE | 2020-11-13 17:36 | HMH.DN ---
- Delivery Note Delivery Date:: 11/13/20 Delivery Time:: 16:11 Was labor medically induced?: Yes Gestational age (weeks): 39 Infant delivered prior to 39 weeks?: No at 1 minute: 9 at 5 minutes: 9 Delivery Procedure:: Spontaneous vaginal delivery of liveborn female over intact perineum. Delivery uncomplicated No nuchal cord or shoulder dystocia with delivery placed in MAKAYLA with mother immediately after umbilical cord clamped/cut, with standard nursing assessment performed Apgars: 9 & 9 Placenta spontaneously expressed and examined; noted to be complete/intact. Vulva, vagina, and cervix inspected; 1st degree laceration repaired with 2-0 vicryl EBL: 300 cc All sponge/needle/instrument counts correct at conclusion of procedure Disposition: Mom/baby stable to recovery in LDRP Laceration:: vaginal Placental Delivery Description: Spontaneous
[2020-11-14 04:00] VITALS: BP 115/59; PULSE 65; RESP 16; TEMP 36.9; O2SAT 99
[2020-11-14 06:53] LABS: Hematocrit 34.4 % (37.0-47.0); Hemoglobin 11.8 g/dL (12.2-16.2)
--- NOTE | 2020-11-14 10:06 | HMH.ACPN2 ---
Internal Medicine - PN: Subj *Date: 11/14/20 *Time: 10:06 Interval history: PPD #1 Tolerating regular diet Ambulating and voiding without difficulty Lochia normal; Hgb stable Exam Vital signs and Labs for Last 24 Hours: Temp Pulse Resp BP Pulse Ox 98.5 F 65 16 115/59 L 99 11/14/20 04:00 11/14/20 04:00 11/14/20 04:00 11/14/20 04:00 11/14/20 04:00 Laboratory Results - last 24 hr 11/14/20 06:40: Hgb 11.8 L, Hct 34.4 L I & O for Last 24 hours: Intake & Output 11/11/20 11/12/20 11/13/20 11/14/20 11:59 11:59 11:59 11:59 Weight 183 lb Narrative: CONSTITUTIONAL: no acute distress HEENT: mucous membranes moist PULMONARY: breathing unlabored without audible wheezes CV: no tachycardia or visible JVD; normal LE peripheral pulses ABD: soft, NT/ND, no guarding : fundus firm below umbilicus SKIN: no visible rash or lesions EXT: no edema NEURO: alert/oriented, no altered mental status PSYCH: appropriate mood and demeanor without visible anxiety/depression Assessment and Plan (1) 39 weeks gestation of Status: Acute Category: Medical Code(s): Z3A.39 - 39 weeks gestation of (2) Vaginal delivery Status: Acute Category: Medical Code(s): O80 - Encounter for full-term uncomplicated delivery - Assessment and plan all Dx Assessment and Plan for all problems:: Stable status continue routine care anticipate discharge home tomorrow
--- NOTE | 2020-11-15 11:45 | HMH.DCSUM ---
General - General Admission date:: 11/13/20 Discharge date: 11/15/20 Hospital Course Hospital Course: Elective IOL at 39+ weeks Normal uncomplicated spontaneous vaginal delivery course uneventful Tolerating regular diet Ambulating and voiding without difficulty Discharged home on PPD #2 Rhogam Administration: Not Indicated Objective Vital signs: Temp Pulse Resp BP Pulse Ox 98.5 F 65 16 115/59 L 99 11/14/20 04:00 11/14/20 04:00 11/14/20 04:00 11/14/20 04:00 11/14/20 04:00 Narrative: CONSTITUTIONAL: no acute distress HEENT: mucous membranes moist PULMONARY: breathing unlabored without audible wheezes CV: no tachycardia or visible JVD; normal LE peripheral pulses ABD: soft, NT/ND, no guarding : fundus firm at/below umbilicus SKIN: no visible rash or lesions EXT: 1+ edema LEs NEURO: alert/oriented, no altered mental status PSYCH: appropriate mood and demeanor without visible anxiety/depression DS: Diagnosis - Discharge Diagnosis (1) 39 weeks gestation of Status: Acute (2) Vaginal delivery Status: Acute Discharge Plan - Patient Discharge Instructions ACTIVITY: Continue current activity DIET: regular diet Additional Instructions: *No heavy lifting *No strenuous activity *Nothing in the Vagina for 6 weeks. Patient Instructions: Depression, Hemorrhage, DI for Labor and Delivery, Vaginal , DI for Pre-eclampsia, [facility] Post Discharge Instructions, Preventing the Spread of Coronavirus Discharge Instructions - Follow up Plan Follow up with: Cassie Shelton MD [Staff Physician] - Disposition: Home, Self-Intermediate Medications: Home Medications Medication Instructions Recorded Confirmed Type prenat.vits,michel,vkr-[id number]-jujcr 1 tab PO DAILY 05/04/20 11/13/20 History Prescriptions/Medication Reconciliation: New Ibuprofen [Motrin 400mg tablet] 800 mg PO Q6HP PRN tablet PRN Reason: Mild To Moderate Pain Acetaminophen [Acetaminophen 325mg tab] 650 mg PO Q4HP PRN tablet PRN Reason: Mild Pain Continued prenat.vits,michel,[id number] 1 tab PO DAILY - Problem Reconciliation Problems Reviewed?: Yes
== END 2020-11-15 13:20 | disposition home or self-care (01) | DRG 807 ==
PROVIDERS: Admitting Provider Obstetrics & Gynecology; PCP Physician Assistant; Visit Provider Obstetrics & Gynecology
DX: O70.0 First degree perineal laceration during delivery (principal); Z37.0 Single live birth; Z3A.39 39 weeks gestation of pregnancy
CPT/HCPCS: 59409; 36415; 59025; 80305; 81001; 85014; 85018; 85025; 86850; 94761; C1758; G0283

== ENCOUNTER 2021-06-30 18:36 | Emergency (ER) | payer OTHER, SELFPAY ==
[2021-06-30 18:40] VITALS: BP 129/73; PULSE 139; RESP 21; TEMP 37.4; O2SAT 98; BMI 25.0
--- NOTE | 2021-06-30 19:07 | HMH.EDUTC ---
[facility] – [place] Dis[place] Clinical Impression: Mastitis Disposition: Home, Self-Care Condition on Discharge: Good Instructions: DI for Mastitis Additional Instructions: cool compresses follow up with pcp if symptoms worsen return or be seen in ed Prescriptions: cephALEXin [Cephalexin 500mg Tab] 500 mg PO BID 10 Days #20 tab Transmission Status: Pending to [facility] Referrals: Imani Puente PA [Primary Care Provider] - Medical Decision Making - Ac Inquiry Pt receiving controlled substance: No Vital Signs: 06/30/21 18:40 Temperature 99.4 F Temperature Source Oral Pulse Rate [Right Brachial] 139 H Respiratory Rate 21 Blood Pressure [Right Arm] 129/73 Blood Pressure Mean [Right Arm] 91 Blood Pressure Source [Right Arm] Automatic Cuff Blood Pressure Position [Right Arm] Sitting 02 Sat by Pulse Oximetry 98 Oxygen Delivery Method Room Air [facility] – [place] HPI - General Chief complaint: Urgent Treatment Center Stated complaint: poss mastitis Time Seen by Provider: 06/30/21 19:07 Mode of Arrival: Ambulatory Source of Information: Patient Limitations: No Limitations Description of Symptoms (Recalled from Triage Doc. by RN): PATIENT C/O POSSIBLE MASTITIS TO LEFT BREAST HEENT Symptoms (Recalled from RN notes): Yes Resp Symptoms (Recalled from RN notes): No Skin Symptoms (Recalled from RN notes): No MS Symptoms (Recalled from RN notes): No Functional Status (Recalled from RN notes): WNL - History of Present Illness Provider Complaint: 26 yr old female presents for pain,tenderness and redness to left breast. pt states feels just like the last time she had it. - Related Data Home Medications Medication Instructions Recorded Confirmed prenat.vits,michel,tiy-[id number] 1 tab PO DAILY 05/04/20 11/13/20 Previous Rx's Medication Instructions Recorded norethindrone (contraceptive) 0.35 0.35 mg PO DAILY #28 tab 12/26/20 mg tablet amoxicillin 500 mg capsule 500 mg PO Q8H 5 Days #15 cap 03/29/21 cephALEXin [Cephalexin 500mg Tab] 500 mg PO BID 10 Days #20 tab 06/30/21 Allergies Allergy/AdvReac Type Severity Reaction Status Date / Time No Known Allergies Allergy Verified 04/09/21 08:48 - Worker's Comp Is this a Worker's Comp case?: No [facility] History - Hepatitis A Screen Drug use history?: No High risk sexual behaviors?: No History of sexually transmitted infection?: No Currently employed?: No Childcare worker?: No Do you have indoor plumbing?: Yes Do you have electricity?: Yes Attestation statement:: This patient has been screened for Hepatitis A risk factors. I have reviewed the patient's past medical history: Yes Medical History: Reports:: Coronary Artery Disease Denies:: Cancer, Diabetes Mellitus Type 1, Diabetes Mellitus Type 2, Internal Pacemaker, Lung Disease, MRSA, Seizures Other Surgeries: Yes: No Previous Surgery. No: , Pacemaker Amputation: No Fractures: No - Social History Smoking Status: Never smoker Alcohol Intake: never Substance Use Type: denies use Occupational Status: employed Housing: house Household Members: family Family Hx:: No significant family history INTERACTIVE MARKETING STRATEGIST history: No INTERACTIVE MARKETING STRATEGIST history ROS Obtained: Yes Systems reviewed as appropriate & no additional complaints - Constitutional Constitutional: Reports system reviewed and no additional complaints, except as docu, Reports chills, Reports fatigue, Denies fever(s) - Eyes Eyes: Reports system reviewed and no additional complaints, except as docu, Denies blurry vision - ENT Ears, Nose, Mouth, and Throat: Reports system reviewed and no additional complaints, except as docu, Denies sore throat - Cardiovascular Cardiovascular: Reports system reviewed and no additional complaints, except as docu, Denies chest pain - Respiratory Respiratory: Reports system reviewed and no additional complaints, except as docu, Denies shortness of breath - Gastrointestinal Gastrointestingal: Reports: system reviewed a
[2021-06-30 19:40] VITALS: BP 129/73; PULSE 139; RESP 21; TEMP 37.4; O2SAT 98
== END 2021-06-30 19:45 | disposition home or self-care (01) ==
PROVIDERS: Emergency Provider Nurse Practitioner Family; PCP Physician Assistant
DX: N61.0 Mastitis without abscess (principal)
CPT/HCPCS: 99202; G0463

== ENCOUNTER → 2022-04-09 09:38 | Outpatient (CLI) | payer BC, OTHER, SELFPAY ==
[2022-04-09 10:46] LABS: HCG,Quantitative 29 mIU/ml (0-5.42)
== END ==
PROVIDERS: PCP Physician Assistant; Visit Provider Obstetrics & Gynecology
DX: Z34.90 Encounter for supervision of normal pregnancy, unspecified, unspecified trimester (principal)
CPT/HCPCS: 36415; 84702

== ENCOUNTER → 2022-04-15 09:51 | Outpatient (CLI) | payer BC, OTHER, SELFPAY ==
[2022-04-15 11:09] LABS: HCG,Quantitative 647 mIU/ml (0-5.42)
== END ==
PROVIDERS: PCP Physician Assistant; Visit Provider Obstetrics & Gynecology
DX: Z01.419 Encounter for gynecological examination (general) (routine) without abnormal findings (principal); Z32.01 Encounter for pregnancy test, result positive
CPT/HCPCS: 36415; 84702

== ENCOUNTER → 2022-04-23 11:43 | Outpatient (CLI) | payer BC, OTHER, SELFPAY ==
[2022-04-23 12:35] LABS: HCG,Quantitative 14763 mIU/ml (0-5.42)
== END ==
PROVIDERS: PCP Physician Assistant; Visit Provider Obstetrics & Gynecology
DX: Z34.90 Encounter for supervision of normal pregnancy, unspecified, unspecified trimester (principal)
CPT/HCPCS: 36415; 84702

== ENCOUNTER → 2022-04-26 15:00 | Outpatient (CLI) | payer BC, SELFPAY ==
--- NOTE | 2022-04-26 15:01 | US_ITS ---
FINAL REPORT CLINICAL HISTORY: dates FINDINGS: PELVIC ULTRASOUND A single living intrauterine is present. Cardiac activity is confirmed at 119 beats per minute. Estimated gestational age is 6 weeks 0 days based on a crown-rump length of 3.2 cm. Appropriate amount of fluid is present. The right ovary measures up to 4.2 cm in length. The left ovary measures up to 2.3 cm in length. There is a 2.1 cm right ovarian cyst that may represent a corpus luteum cyst. IMPRESSION: Single living intrauterine with an estimated gestational age of 6 weeks 0 days. 2.1 cm right ovarian cyst may represent a corpus luteum cyst. Reviewed, Interpreted and Dictated by Neftali Barksdale III, MD Transcribed by Travis Maynard Authenticated and [facility]
== END ==
LOC: RAD 15:01
PROVIDERS: PCP Physician Assistant; Visit Provider Obstetrics & Gynecology
DX: Z34.90 Encounter for supervision of normal pregnancy, unspecified, unspecified trimester (principal)
CPT/HCPCS: 76801

== ENCOUNTER → 2022-04-29 13:24 | Outpatient (CLI) | payer BC, OTHER, SELFPAY ==
[2022-04-29 14:49] LABS: Basophils # 0.1 K/mm3 (0-0.2); Basophils % 0.9 % (0.1-2.0); Eosinophils # 0.2 K/mm3 (0.0-0.4); Eosinophils % 2.7 % (0.1-12.0); Hematocrit 39.4 % (37.0-47.0); Hemoglobin 13.1 g/dL (12.2-16.2); Lymphocytes # 1.9 K/mm3 (0.7-4.5); Lymphocytes % 21.2 % (10-50); Mean Corpuscular HGB Conc 33.4 g/dL (31.8-35.4); Mean Corpuscular Hemoglobin 31.6 pg (27.0-31.2); Mean Corpuscular Volume 94.7 fl (81-99); Mean Platelet Volume 9.5 fl (7.4-10.4); Monocytes # 0.4 K/mm3 (0.1-1.0); Neutrophils # 6.3 K/mm3 (1.8-7.8); Neutrophils % 71.2 % (37.0-80.0); Platelet Count 293 K/mm3 (142-424); Red Blood Count 4.16 M/mm3 (4.20-5.40); Red Cell Distribution Width 13.2 % (11.5-17.5); White Blood Count 8.9 K/mm3 (4.8-10.8)
[2022-05-01 08:14] LABS: Rubella Antibodies, IgG 1.17 index (Immune >0.99)
[2022-05-01 09:13] LABS: HIV Screen 4th Generation wRfx Non Reactive (Non Reactive)
[2022-05-01 11:12] LABS: Hepatitis B Surface Antigen Negative (Negative); Hepatitis C Antibody <0.1 s/co ratio (0.0-0.9); Rapid Plasma Reagin Ab Titer Non Reactive (NonRea<1:1)
== END ==
PROVIDERS: PCP Physician Assistant; Visit Provider Obstetrics & Gynecology
DX: Z34.90 Encounter for supervision of normal pregnancy, unspecified, unspecified trimester (principal)
CPT/HCPCS: 36415; 85025; 86592; 86703; 86762; 86850; 87340; 87380; G0432

== ENCOUNTER → 2022-08-05 10:16 | Outpatient (CLI) | payer BC, SELFPAY ==
--- NOTE | 2022-08-05 10:16 | US_ITS ---
FINAL REPORT CLINICAL HISTORY: 20 weeks anatomy scan FINDINGS: There is a single live intrauterine gestation. Presentation is variable but breech at the end of the exam. The cervix is closed and measures 3.8 cm. Placenta is posterior, grade 1. movement is noted. heart rate is 156 beats per minute Three-vessel cord with satisfactory umbilical cord insertion. Four-chamber heart is noted. brain and ventricles are unremarkable. Chest and diaphragm are unremarkable. ABDOMEN: Both kidneys are unremarkable. Stomach is unremarkable. SPINE: No anomalies identified. Both arms and legs noted. AMNIOTIC FLUID: Appropriate amount. MEASUREMENTS: ULTRASOUND AGE: 20 weeks 4 days. GESTATION AGE: 20 weeks 5 days. ESTIMATED WEIGHT: 360 g GROWTH PERCENTILE: 35% % BPD: 4.79 cm corresponding to 20 weeks 4 days. OFD: 6.22 cm corresponding to 20 weeks 6 days. HC: 17.44 cm corresponding to 20 weeks 0 days. AC: 15.51 cm corresponding to 20 weeks 5 days. FL: 3.35 cm corresponding to 20 weeks 4 days. CEREBELLUM: 1.99 cm corresponding to 20 weeks 2 days. HUMERUS: 3.22 cm corresponding to 20 weeks 6 days. HC/AC: 1.12 CI: 77% FL/BPD: 70% FL/AC: 20% IMPRESSION: Single living IUP with an ultrasound age of 20 weeks 4 days. Reviewed, Interpreted and Dictated by Neftali Barksdale III, MD Transcribed by Esperanza Boyd Authenticated and [facility]
== END ==
LOC: RAD 10:16
PROVIDERS: PCP Physician Assistant; Visit Provider Obstetrics & Gynecology
DX: Z34.90 Encounter for supervision of normal pregnancy, unspecified, unspecified trimester (principal); Z3A.20 20 weeks gestation of pregnancy
CPT/HCPCS: 76811

== ENCOUNTER → 2022-09-17 08:26 | Outpatient (CLI) | payer BC, SELFPAY ==
[2022-09-17 08:49] LABS: Glucose,Fasting 90 mg/dl (74-100)
[2022-09-17 10:07] LABS: Glucose 1 Hour 118 mg/dL (74-100)
== END ==
PROVIDERS: PCP Physician Assistant; Visit Provider Obstetrics & Gynecology
DX: Z34.90 Encounter for supervision of normal pregnancy, unspecified, unspecified trimester (principal)
CPT/HCPCS: 36415; 82951

== ENCOUNTER 2022-11-08 12:53 | Outpatient (CLI) | payer BC, SELFPAY ==
--- NOTE | 2022-11-08 12:53 | US_ITS ---
FINAL REPORT CLINICAL HISTORY: SGA growth and s/d ratio done as well FINDINGS: TRANSABDOMINAL ULTRASOUND There is a single live intrauterine gestation. Presentation is cephalic. The cervix is closed and measures 3.4 cm. Placenta is anterior, grade 1-2. Cardiac activity is confirmed at 163 bpm. Fetus is active. PAYTON: 6.97 cm MEASUREMENTS: ULTRASOUND AGE: 34 weeks 2 days. GESTATION AGE: 34 weeks 2 days. ESTIMATED WEIGHT: 2245 g GROWTH PERCENTILE: 27% LMP percentile HC/AC: 1.05 CI: 86% FL/BPD: 77% FL/AC: 24% S/D ratio: 2.50 BPD: 8.8 cm corresponding with 35 weeks 5 days. OFD: 10.3 cm corresponding with 32 weeks 1 days. HC: 30.2 cm corresponding with 33 weeks 4 days. AC: 28.7 cm corresponding with 32 weeks 5 days. FL: 6.8 cm corresponding with 34 weeks 6 days. BREATHIN/2 MOVEMENT: 2/2 TONE: 2/2 FLUID VOLUME: 2/2 BPP SCORE: 8/8 IMPRESSION: Single living IUP with an ultrasound age of 34 weeks 2 days. BPP SCORE: 8/8 PAYTON: 6.97 cm Reviewed, Interpreted and Dictated by Juventino Briseno MD Transcribed by Fani Gabriel Authenticated and [facility]
[2022-11-08 15:28] VITALS: BMI 27.7
[2022-11-08 15:56] LABS: Fetal Membrane Rupture (Rapid) Negative (Negative)
[2022-11-08 16:40] VITALS: BMI 27.7
== END 2022-11-08 18:21 | disposition home or self-care (01) ==
LOC: RAD 15:08 → OB 15:10
PROVIDERS: PCP Physician Assistant; Visit Provider Obstetrics & Gynecology
DX: O36.5990 Maternal care for other known or suspected poor fetal growth, unspecified trimester, not applicable or unspecified (principal)
CPT/HCPCS: 59025; 76816; 76819; 76820; 84112; 96360; 96372

== ENCOUNTER 2022-11-09 13:53 | Outpatient (CLI) | payer BC, SELFPAY ==
[2022-11-09 14:07] VITALS: BP 110/64; PULSE 98; RESP 18; TEMP 36.8; O2SAT 99; BMI 27.1
[2022-11-09 14:31] VITALS: BP 110/64; PULSE 98; RESP 18; TEMP 36.8; O2SAT 99; BMI 27.1
== END 2022-11-09 16:00 | disposition home or self-care (01) ==
LOC: OBOUT 13:55 → OB 13:55
PROVIDERS: PCP Physician Assistant; Visit Provider Obstetrics & Gynecology
DX: O26.893 Other specified pregnancy related conditions, third trimester (principal); Z3A.34 34 weeks gestation of pregnancy
CPT/HCPCS: 59025; 96365; 96372; G0463

== ENCOUNTER → 2022-11-11 10:58 | Outpatient (CLI) | payer BC, SELFPAY ==
--- NOTE | 2022-11-11 11:04 | US_ITS ---
FINAL REPORT CLINICAL HISTORY: Repeat PAYTON check-See last Ultrasound Results - patient received IV fluids over the weekend. COMPARISON: 11/08/2022 FINDINGS: TRANSABDOMINAL ULTRASOUND There is a single live intrauterine gestation. Limited imaging was obtained for follow-up on PAYTON. Presentation is cephalic. Placenta is fundal/anterior, grade 2. Cardiac activity is confirmed at 149 bpm. Fetus is active. PAYTON: 12 cm MEASUREMENTS: ULTRASOUND AGE: 34 weeks 5 days. GESTATION AGE: 34 weeks 5 days. HC/AC: 1.03 CI: 80% BPD: 8.7 cm corresponding with 35 weeks 1 days. OFD: 10.9 cm corresponding with 35 weeks 0 days. HC: 30.9 cm corresponding with 34 weeks 4 days. AC: 30.1 cm corresponding with 34 weeks 1 days. Biophysical profile from 11/08/2022 BREATHIN/2 MOVEMENT: 2/2 TONE: 2/2 FLUID VOLUME: 2/2 BPP SCORE: 8/8 IMPRESSION: Single living IUP with an ultrasound age of 34 weeks 5 days. BPP SCORE: 8/8 Repeated PAYTON: 12.0 cm Reviewed, Interpreted and Dictated by Danna Hassan MD Transcribed by Fani Gabriel Authenticated and [facility]
== END ==
LOC: RAD 10:58
PROVIDERS: PCP Physician Assistant; Visit Provider Obstetrics & Gynecology
DX: O28.8 Other abnormal findings on antenatal screening of mother (principal)
CPT/HCPCS: 76819

== ENCOUNTER 2022-11-15 09:48 | Outpatient (CLI) | payer BC, SELFPAY ==
--- NOTE | 2022-11-15 09:48 | US_ITS ---
FINAL REPORT CLINICAL HISTORY: REPEAT PAYTON COMPARISON: 11/11/2022 FINDINGS: There is a single live intrauterine gestation. Presentation is vertex. The cervix is closed and measures 4.1 cm. Placenta is fundal. movement is noted. The PAYTON is low at 4.2 cm. There is bilateral hydronephrosis. The heart rate is detected at 142 beats per minute. Biophysical profile: Breathin Movement: 2 Tone: 2 Fluid volume: 0 IMPRESSION: Low amniotic fluid index, rather prominently decreased since previous. Biophysical profile score 6/8. Bilateral hydronephrosis. Reviewed, Interpreted and Dictated by Danna Hassan MD Transcribed by Blessing Daugherty Authenticated and [facility]
[2022-11-15 11:58] VITALS: BP 111/63; PULSE 108; RESP 18; TEMP 37.2; O2SAT 96; BMI 26.9
[2022-11-15 12:25] LABS: Coronavirus 19, PCR Not Detected (NotDetected); Influenza A, PCR Not Detected (NotDetected); Influenza B, PCR Not Detected (NotDetected); Microscopic, Urine URINE MICROSCOPIC (MICROSCOPIC)
[2022-11-15 12:28] LABS: Appearance,Urine SL CLOUDY (Clear); Bilirubin,Urine Negative (Negative); Blood, Urine Negative (Negative); Color,Urine YELLOW (Yellow); Glucose,Urine (UA) Negative (Negative); Ketones,Urine Negative (Negative); Leukocyte Esterase,Urine 1+ (Negative); Nitrate,Urine Negative (Negative); Protein,Urine Negative (Negative); Specific Gravity, Urine <= 1.005 (1.005-1.030); Urobilinogen,Urine 0.2 EU/dl (0.2)
[2022-11-15 12:39] LABS: Amphetamine/Metha Screen,Urine Negative ng/ml (<1000); Barbiturates Screen,Urine Negative ng/ml (<200)
[2022-11-15 12:40] LABS: Benzodiazepines Screen,Urine Negative ng/ml (<200)
[2022-11-15 12:41] LABS: Cannabinoid Screen,Urine Negative ng/ml (<50); Cocaine Screen,Urine Negative ng/ml (<300)
[2022-11-15 12:42] LABS: Methadone Screen,Urine Negative ng/ml (<300)
[2022-11-15 12:44] LABS: Bacteria,Urine Trace /lpf
[2022-11-15 12:48] LABS: Opiate Screen,Urine Negative ng/ml (<300); Phencyclidine Screen,Urine Negative ng/ml (<25)
--- NOTE | 2022-11-15 16:37 | EXP.HP ---
History of Present Illness *Admission Date: 11/15/22 *Reason for visit:: Oligohydramnios *History of present illness: 27 yo @ 35 2/7 Oligohydramnios identified on ultrasound on 11/08 (34 2/7), with PAYTON 6.97 EFW 2245gm (27%), UA S/D 2.5 Amnisure was negative for PROM This was 2 weeks after a fall onto her butt, but no clinical signs of abruption and no ultrasound findings c/w abruption She was given IV fluid bolus and celestone x 2, with repeat ultrasound PAYTON 12.0 on 11/11 Follow up ultrasound today shows PAYTON 4.18, with BPP 01/23 Phone consultation with [facility] advised admission for IV fluid bolus and monitoring She will have daily NST until Friday, when she will be scanned by [facility] Disclaimer: The information contained in this section may have been updated after the patient was seen, as this information can be updated by other users. 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 Umbilical hernia Surgical History No history of previous surgery Family History Other No significant family history Social History Smoking Status: Never smoker alcohol intake: never substance use type: denies use current occupational status: unemployed Travel in the last 8 weeks: None household members: family housing: house current occupational exposures/hazards: No caffeine: No Review of Systems Constitutional Constitutional: Reports system reviewed and no additional complaints, except as documented and Denies headache(s) ENT Ears, Nose, Mouth, and Throat: Denies headache(s) *Gastrointestinal Gastrointestinal: Denies abdominal pain *Genitourinary Genitourinary: Denies abnormal vaginal bleeding Comments: No leakage of fluid *Neurologic Neurologic: Denies headache(s) and Denies other visual disturbances Meds Home Medications and Allergies Home Medications Medication Instructions Recorded Confirmed Type vit no.95-ferrous 1 tab PO DAILY Supplement 04/09/22 11/15/22 History fumarate 28 mg-folic acid 800 mcg tablet oqwknxqkil-zzvmnldwlstsb-dcnzgucc 1 tab PO Q6H PRN pain #30 tabs 08/27/22 11/15/22 Rx 50 mg-325 mg-40 mg tablet New Prescriptions to Start Prescriptions: Allergies Allergy/AdvReac Type Severity Reaction Status Date / Time No Known Allergies Allergy Verified 11/15/22 10:43 Exam Data for Last 24 hours Vital signs and Labs for Last 24 Hours: Temp Pulse Resp BP Pulse Ox 99.0 F 108 H 18 111/63 96 11/15/22 11:58 11/15/22 11:58 11/15/22 11:58 11/15/22 11:58 11/15/22 11:58 Laboratory Results - last 24 hr 11/15/22 12:03: Urine Color Yellow, Urine Appearance Sl cloudy, Urine pH 7.0, Ur Specific [place] <= 1.005, Urine Protein Negative, Urine Glucose (UA) Negative, Urine Ketones Negative, Urine Blood Negative, Urine Nitrate Negative, Urine Bilirubin Negative, Urine Urobilinogen 0.2, Ur Leukocyte Esterase 1+ A, Urine RBC None, Urine WBC 3-5, Ur Squamous Epith Cells 5-10, Urine Bacteria Trace 11/15/22 12:03: SARS-CoV-2 (PCR) Not detected, Influenza A Untype (PCR) Not detected, Influenza Type B (PCR) Not detected 11/15/22 12:03: Urine Opiates Screen Negative, Urine Methadone Screen Negative, Ur Barbituates Screen Negative, Ur Phencyclidine Scrn Negative, Ur Amphetamines Screen Negative, U Benzodiazepines Scrn Negative, Urine Cocaine Screen Negative, U Marijuana (THC) Screen Negative I & O for Last 24 hours: Intake & Output 11/13/22 11/14/22 11/15/22 11/16/22 11:59 11:59 11:59 11:59 Weight 172 lb Constitutional Constitutional: no acute distress *Routine HEENT Exam Head: Present normocephalic Ey
--- NOTE | 2022-11-16 11:06 | EXP.DC.SUM ---
General Admission date:: 11/15/22 Discharge date: 11/16/22 HPI HPI HPI: 27 yo @ 35 2/7 Oligohydramnios identified on ultrasound on 11/08 (34 2/7), with PAYTON 6.97 EFW 2245gm (27%), UA S/D 2.5 Amnisure was negative for PROM This was 2 weeks after a fall onto her butt, but no clinical signs of abruption and no ultrasound findings c/w abruption She was given IV fluid bolus and celestone x 2, with repeat ultrasound PAYTON 12.0 on 11/11 Follow up ultrasound today shows PAYTON 4.18, with BPP 01/23 Phone consultation with [facility] advised admission for IV fluid bolus and monitoring She will have daily NST until Friday, when she will be scanned by [facility] Hospital Course Hospital Course Hospital Course: No maternal complaints Normal vital signs and physical exam She denies leakage of fluid or vaginal bleeding NST reactive q shift, with no late or variable decelerations and normal variability Few contractions noted on TOCO She was given IV fluid bolus, followed by continuous infusion at 150cc/hour She will return to triage tomorrow for NST and IV fluid bolus She will also have GBS culture and cervical exam tomorrow in anticipation of possible need for delivery soon Exam Data for Last 24 hours Vital signs and Labs for Last 24 Hours: Temp Pulse Resp BP Pulse Ox 99.0 F 108 H 18 111/63 96 11/15/22 11:58 11/15/22 11:58 11/15/22 11:58 11/15/22 11:58 11/15/22 11:58 Laboratory Results - last 24 hr 11/15/22 12:03: Urine Color Yellow, Urine Appearance Sl cloudy, Urine pH 7.0, Ur Specific [place] <= 1.005, Urine Protein Negative, Urine Glucose (UA) Negative, Urine Ketones Negative, Urine Blood Negative, Urine Nitrate Negative, Urine Bilirubin Negative, Urine Urobilinogen 0.2, Ur Leukocyte Esterase 1+ A, Urine RBC None, Urine WBC 3-5, Ur Squamous Epith Cells 5-10, Urine Bacteria Trace 11/15/22 12:03: SARS-CoV-2 (PCR) Not detected, Influenza A Untype (PCR) Not detected, Influenza Type B (PCR) Not detected 11/15/22 12:03: Urine Opiates Screen Negative, Urine Methadone Screen Negative, Ur Barbituates Screen Negative, Ur Phencyclidine Scrn Negative, Ur Amphetamines Screen Negative, U Benzodiazepines Scrn Negative, Urine Cocaine Screen Negative, U Marijuana (THC) Screen Negative I & O for Last 24 hours: Intake & Output 11/13/22 11/14/22 11/15/22 11/16/22 11:59 11:59 11:59 11:59 Weight 172 lb Constitutional Constitutional: no acute distress *Routine HEENT Exam Head: Present normocephalic Eye: Absent conjunctival icterus or scleral injection ENT: Present mucous membranes moist *Routine Neck Exam Neck: Present supple *Routine Respiratory Exam Respiratory: Present CTA bilaterally *Routine Cardiovascular Exam Cardiovascular: Present RRR *Routine Abdominal Exam Abdominal: Present soft; Absent tenderness or distended *Routine Rectal Exam Patient deferred: visual exam and digital exam *Routine Exam Patient deferred: external exam *Routine Extremities Exam Extremities: Absent edema *Routine Neurological Exam Neurological: Present alert and oriented X3 Routine Psychiatric Exam Psychiatric: Present normal affect; Absent depressed Results Data Completed and Pending Labs on day of discharge: Labs from last 24 hours 11/15/22 11/15/22 11/15/22 12:03 12:03 12:03 Urine Color Yellow Urine Appearance Sl cloudy Urine pH 7.0 Ur Specific [place] <= 1.005 Urine Protein Negative Urine Glucose (UA) Negative Urine Ketones Negative Urine Blood Negative Urine Nitrate Negative Urine Bilirubin Negative Urine Urobilinogen 0.2 Ur Leukocyte Esterase 1+ A Urine RBC None Urine WBC 3-5 Ur Squamous Epith Cells 5-10 Urine Bacteria Trace Urine Opiates Screen Negative Urine Methadone Screen Negative Ur Barbituates Screen Negative Ur Phencyclidine Scrn Negative Ur Amphetamines Screen Negative U Benzodiazepines Scrn Negative Urine Cocaine Screen Negative U Mar
[2022-11-16 11:13] VITALS: BP 104/59; PULSE 90; RESP 18; TEMP 36.6; O2SAT 99
== END 2022-11-16 11:24 | disposition home or self-care (01) ==
LOC: RAD 11:55 → OB 11:55
PROVIDERS: PCP Physician Assistant; Visit Provider Obstetrics & Gynecology
DX: O41.03X0 Oligohydramnios, third trimester, not applicable or unspecified (principal); Z3A.35 35 weeks gestation of pregnancy
CPT/HCPCS: 59025; 76819; 80305; 81001; 86403; 87086; C9803; U0003; U0005

== ENCOUNTER 2022-11-17 11:09 | Outpatient (CLI) | payer BC, SELFPAY ==
[2022-11-17 13:36] VITALS: BP 116/68; PULSE 92; RESP 18; TEMP 36.9; O2SAT 100; BMI 26.9
== END 2022-11-17 12:55 | disposition home or self-care (01) ==
LOC: OBOUT 11:10 → OB 11:11
PROVIDERS: PCP Physician Assistant; Referring Provider Obstetrics & Gynecology; Visit Provider Nurse Practitioner Obstetrics & Gynecology
DX: O26.893 Other specified pregnancy related conditions, third trimester (principal); Z3A.35 35 weeks gestation of pregnancy
CPT/HCPCS: 59025; 96365; G0463

== ENCOUNTER 2022-11-21 05:09 | Inpatient (IN) | payer BC, SELFPAY ==
[2022-11-21 05:14] VITALS: BMI 26.6
[2022-11-21 05:15] VITALS: BP 119/71; PULSE 118; RESP 19; TEMP 36.6; O2SAT 98
[2022-11-21 05:35] VITALS: BP 119/71; PULSE 118; RESP 19; TEMP 36.6; O2SAT 98; BMI 26.6
[2022-11-21 05:46] LABS: Microscopic, Urine URINE MICROSCOPIC (MICROSCOPIC)
[2022-11-21 05:48] LABS: Coronavirus 19, PCR Not Detected (NotDetected); Influenza A, PCR Not Detected (NotDetected); Influenza B, PCR Not Detected (NotDetected)
[2022-11-21 05:50] LABS: Basophils # 0.1 K/mm3 (0-0.2); Basophils % 0.5 % (0.1-2.0); Eosinophils # 0.2 K/mm3 (0.0-0.4); Eosinophils % 1.4 % (0.1-12.0); Hematocrit 37.5 % (37.0-47.0); Hemoglobin 12.6 g/dL (12.2-16.2); Lymphocytes # 2.3 K/mm3 (0.7-4.5); Lymphocytes % 22.5 % (10-50); Mean Corpuscular HGB Conc 33.5 g/dL (31.8-35.4); Mean Corpuscular Hemoglobin 32.8 pg (27.0-31.2); Mean Corpuscular Volume 97.8 fl (81-99); Mean Platelet Volume 9.9 fl (7.4-10.4); Monocytes # 0.5 K/mm3 (0.1-1.0); Monocytes % 4.7 % (1.7-9.3); Neutrophils # 7.3 K/mm3 (1.8-7.8); Neutrophils % 70.8 % (37.0-80.0); Platelet Count 219 K/mm3 (142-424); Red Blood Count 3.83 M/mm3 (4.20-5.40); Red Cell Distribution Width 14.2 % (11.5-17.5); White Blood Count 10.3 K/mm3 (4.8-10.8)
[2022-11-21 05:56] LABS: Appearance,Urine CLEAR (Clear); Bilirubin,Urine Negative (Negative); Blood, Urine Negative (Negative); Color,Urine YELLOW (Yellow); Glucose,Urine (UA) Negative (Negative); Ketones,Urine Negative (Negative); Leukocyte Esterase,Urine 1+ (Negative); Nitrate,Urine Negative (Negative); PH,Urine 7.5 (5.0-8.5); Protein,Urine Negative (Negative); Urobilinogen,Urine 0.2 EU/dl (0.2)
[2022-11-21 06:08] LABS: Amphetamine/Metha Screen,Urine Negative ng/ml (<1000); Barbiturates Screen,Urine Negative ng/ml (<200)
[2022-11-21 06:09] LABS: Benzodiazepines Screen,Urine Negative ng/ml (<200)
[2022-11-21 06:10] LABS: Cannabinoid Screen,Urine Negative ng/ml (<50); Cocaine Screen,Urine Negative ng/ml (<300)
[2022-11-21 06:11] LABS: Methadone Screen,Urine Negative ng/ml (<300)
[2022-11-21 06:12] LABS: Opiate Screen,Urine Negative ng/ml (<300); Phencyclidine Screen,Urine Negative ng/ml (<25)
[2022-11-21 07:40] VITALS: BP 108/62; PULSE 90; RESP 17; TEMP 36.7; O2SAT 98
--- NOTE | 2022-11-21 08:52 | P.CONPHA_ITS ---
Pharmacy Intervention Comments: Reconciled patient's home medications using pharmacy fill history and [facility] clinic notes.
--- NOTE | 2022-11-21 08:52 | HMH.PHAINT1 ---
Pharmacy Intervention Comments: Reconciled patient's home medications using pharmacy fill history and [facility] [employer] clinic notes.
--- NOTE | 2022-11-21 12:51 | EXP.HP ---
History of Present Illness *Admission Date: 11/21/22 *Reason for visit:: Labor Induction *History of present illness: 27 yo @ 36 08/24 admitted for induction of labor care at [facility]--Dr. Shelton Dating by LMP = 6 week ultrasound complicated by oligohydramnios identified on 34 week ultrasound, with PAYTON 6.97 (negative Amnisure) EFW 2245gm (27%), UA S/D 2.5 After IV fluid bolus, PAYTON had transient increase to 12cm but subsequently dropped to 4.3 MFM consult following another fluid bolus confirmed persistent oligohydramnios (PAYTON 3.7) with AC measurement at 8% She had a fall onto her butt at 33 weeks, prior to the diagnosis of oligohydramnios, but has had no clinical signs or imaging evidence of abruption thus far Delivery was recommended between 36-37 wks She also received steroids at 34 weeks Anatenatal testing with NST and BPP has remained reassuring GBS negative labs normal; negative GDM screening aneuploidy screen low risk, with XX fetus Maternal screen: positive carrier Polycystic Kidney Disease and positive carrier Clphd-Luwga-Jyboc syndrome Partner screening was declined [facility] Disclaimer: The information contained in this section may have been updated after the patient was seen, as this information can be updated by other users. Medical History (Updated 11/21/22 @ 13:06 by Cassie Shelton MD) 16 weeks gestation of Family history of breast cancer Genetic disease carrier status testing, female Umbilical hernia Surgical History No history of previous surgery Family History Other No significant family history Social History (Updated 11/21/22 @ 05:50 by Ariadne Rg, ANNA) Smoking Status: Never smoker alcohol intake: never substance use type: denies use current occupational status: unemployed Travel in the last 8 weeks: None household members: family housing: house current occupational exposures/hazards: No caffeine: No Review of Systems Review of Systems Review of systems:: pertinent systems reviewed and negative unless documented below Review of systems (narrative): + Good movement Constitutional Constitutional: Denies chills and Denies fever(s) *Genitourinary Genitourinary: Denies abnormal vaginal bleeding *Neurologic Neurologic: Denies other visual disturbances Meds Home Medications and Allergies Home Medications Medication Instructions Recorded Confirmed Type vit no.95-ferrous 1 tab PO DAILY Supplement 04/09/22 11/21/22 History fumarate 28 mg-folic acid 800 mcg tablet pjkaddwkgs-ocvivjvjacriv-bwahrgiw 1 tab PO Q6H PRN pain #30 tabs 08/27/22 11/21/22 Rx 50 mg-325 mg-40 mg tablet New Prescriptions to Start Prescriptions: Allergies Allergy/AdvReac Type Severity Reaction Status Date / Time No Known Allergies Allergy Verified 11/20/22 08:33 Exam Data for Last 24 hours Vital signs and Labs for Last 24 Hours: Temp Pulse Resp BP Pulse Ox 98.0 F 90 17 108/62 L 98 11/21/22 07:40 11/21/22 07:40 11/21/22 07:40 11/21/22 07:40 11/21/22 07:40 Laboratory Results - last 24 hr 11/21/22 05:30: Urine Color Yellow, Urine Appearance Clear, Urine pH 7.5, Ur Specific [place] 1.010, Urine Protein Negative, Urine Glucose (UA) Negative, Urine Ketones Negative, Urine Blood Negative, Urine Nitrate Negative, Urine Bilirubin Negative, Urine Urobilinogen 0.2, Ur Leukocyte Esterase 1+ A, Urine RBC None, Urine WBC 3-5, Ur Squamous Epith Cells 3-5, Urine Bacteria None 11/21/22 05:30: SARS-CoV-2 (PCR) Not detected, Influenza A Untype (PCR) Not detected, Influenza Type B (PCR) Not detected 11/21/22 05:30: Urine Opiates Screen Negative, Urine Methadone Screen Negative, Ur Barbituates Screen Negative, Ur Phencyclidine Scrn Negative, Ur Amphetamines Screen Negative, U Benzodiazepines Scrn Negative, U
[2022-11-21 16:55] VITALS: BP 111/53; PULSE 92; RESP 18; TEMP 36.9; O2SAT 99
--- NOTE | 2022-11-21 19:07 | EXP.DN ---
Delivery Note Delivery Date:: 11/21/22 Delivery Time:: 18:46 Anesthesia Type: Epidural Was labor medically induced?: Yes Induction method: per pitocin protocol Gestational age (weeks): 36 delivered prior to 39 weeks?: Yes Justification for early elective delivery:: Oligohydraminos Gender: Female at 1 minute: 8 at 5 minutes: 9 Delivery Procedure:: Rapid progression from 7cm to complete Spontaneous vaginal delivery of vigorous female over intact perineum. Delivery uncomplicated No nuchal cord or shoulder dystocia present at delivery Infant placed in [facility] immediately after delivery, with standard nursing assessment performed Infant Apgars: 8 & 9 Placenta spontaneously expressed and examined; noted to be complete, but 4x2cm area appeared detached and consistent with abruption Placenta sent to pathology Vulva, vagina, and cervix inspected; no lacerations present Fundal massage performed and clots evacuated from uterus EBL: 200 cc All sponge/needle/instrument counts correct at conclusion of procedure Mother and infant stable to recovery Placental Delivery Description: Spontaneous
[2022-11-22 07:04] LABS: Hematocrit 33.9 % (37.0-47.0); Hemoglobin 11.6 g/dL (12.2-16.2)
--- NOTE | 2022-11-22 07:17 | EXP.ACUTE.PN ---
Subjective *Date: 11/22/22 *Time: 07:17 Interval history: PPD # 1 s/p Resting comfortably in bed. Pain controlled. Light lochia. Breast feeding. Voiding without difficulty and passing flatus. Tolerating regular diet. Denies fever/chills, chest pain and shortness of breath. No headaches or vision changes. No swelling. Medical Exam Vital signs and Labs for Last 24 Hours: Vital Signs Temp Pulse Resp BP Pulse Ox 11/21/22 16:55 98.4 F 92 H 18 111/53 L 99 11/21/22 07:40 98.0 F 90 17 108/62 L 98 Laboratory Results - last 24 hr 11/22/22 06:43: Hgb 11.6 L, Hct 33.9 L I & O for Labs for Last 24 Hours: Intake & Output 11/19/22 11/20/22 11/21/22 11/22/22 23:59 23:59 23:59 23:59 Weight 170 lb Microbiology Reports for the Last 24 Hours: Microbiology 11/21/22 05:30 Urine,Clean Catch Urine Culture - Preliminary NO GROWTH AFTER 24 HOURS Head: Present atraumatic and normocephalic ENT: Present normal exam and mucous membranes moist Neck: Present normal inspection and full ROM Respiratory: Present CTA bilaterally and normal respiratory effort Cardiac: Present Reg Rate and Rhythm GI: Present soft; Absent distention or tenderness Comments:: Uterine fundus firm and below umbilicus Rectal (female): Present deferred (female): Present deferred Extremities: Present normal inspection and full ROM; Absent edema or calf tenderness Neuro: Present alert, awake, oriented x 3 and moves all extremities Assessment and Plan *Assessment and plan (1) 36 weeks gestation of : Status: Acute Category: Medical Code(s): Z3A.36 - 36 weeks gestation of (2) Oligohydramnios in bee in third trimester: Status: Acute Category: Medical Code(s): O41.03X0 - Oligohydramnios, third trimester, not applicable or unspecified (3) Genetic disease carrier status testing, female: Problem Comment: carrier: polycystic kidney disease carrier: [id number] syndrome Status: Acute Category: Medical Code(s): Z13.71 - Encounter for nonprocreative screening for genetic disease carrier status Plan Continue routine care Encouraged increased ambulation Plan d/c home tomorrow
[2022-11-23 08:00] VITALS: BP 113/67; PULSE 71; RESP 16; TEMP 36.6; O2SAT 99
--- NOTE | 2022-11-23 09:28 | EXP.DC.SUM ---
General Admission date:: 11/21/22 Discharge date: 11/23/22 HPI HPI HPI: PPD # 2 s/p Feeling well. Pain controlled. Light lochia. Breast feeding. Voiding without difficulty and passing flatus. Tolerating regular diet. Denies fever/chills, chest pain and shortness of breath. Denies headaches, vision changes and dizziness. Admits to mild ankle/feet swelling. No calf pain. Hospital Course Hospital Course Hospital Course: 27 yo @ 36 08/24 admitted for induction of labor care at [facility]--Dr. Shelton Dating by LMP = 6 week ultrasound complicated by oligohydramnios identified on 34 week ultrasound, with PAYTON 6.97 (negative Amnisure) EFW 2245gm (27%), UA S/D 2.5 After IV fluid bolus, PAYTON had transient increase to 12cm but subsequently dropped to 4.3 MFM consult following another fluid bolus confirmed persistent oligohydramnios (PAYTON 3.7) with AC measurement at 8% She had a fall onto her butt at 33 weeks, prior to the diagnosis of oligohydramnios, but has had no clinical signs or imaging evidence of abruption thus far Delivery was recommended between 36-37 wks She also received steroids at 34 weeks Anatenatal testing with NST and BPP has remained reassuring GBS negative labs normal; negative GDM screening aneuploidy screen low risk, with XX fetus Maternal screen: positive carrier Polycystic Kidney Disease and positive carrier Akett-Nuahg-Iswqi syndrome Partner screening was declined She underwent induction of labor on 11/21/22 with Pitocin per protocol. She had a normal spontaneous vaginal delivery on 11/21/22 at 1846. She delivered a live female baby (baby's name is Castillo) weighing 6 lb 6 oz, APGARs 8,9. EBL 200 mL. She did well . Pain controlled. Light lochia. Breast feeding. Voiding without difficulty and passing flatus. Tolerating regular diet. Vital signs stable, afebriile. Heart regular rate and rhythm. Lungs clear to auscultation. Abdomen soft, nontender. Trace bilateral ankle/pedal edema. No calf tenderness. Normal hospital course. She was discharged home on PPD # 2. She was instructed to follow-up in the office in 2 weeks. Exam Data for Last 24 hours Vital signs and Labs for Last 24 Hours: Temp Pulse Resp BP Pulse Ox 98.4 F 92 H 18 111/53 L 99 11/21/22 16:55 11/21/22 16:55 11/21/22 16:55 11/21/22 16:55 11/21/22 16:55 I & O for Last 24 hours: Intake & Output 11/20/22 11/21/22 11/22/22 11/23/22 23:59 23:59 23:59 23:59 Weight 170 lb Microbiology Reports for the Last 24 Hours: Microbiology 11/21/22 05:30 Urine,Clean Catch Urine Culture - Final NO GROWTH AFTER 48 HOURS Constitutional Constitutional: no acute distress *Routine HEENT Exam Head: Present normocephalic and atraumatic Eye: Absent conjunctivae pink ENT: Present mucous membranes moist and dentition normal *Routine Neck Exam Neck: Present full ROM *Routine Respiratory Exam Respiratory: Present CTA bilaterally and normal respiratory effort *Routine Cardiovascular Exam Cardiovascular: Present RRR *Routine Abdominal Exam Abdominal: Present soft and normoactive bowel sounds; Absent tenderness or distended *Routine Rectal Exam Patient deferred: visual exam *Routine Exam Patient deferred: external exam *Routine Extremities Exam Extremities: Present edema (trace bilateral ankle and pedal edema) and full ROM; Absent calf tenderness *Routine Neurological Exam Neurological: Present alert, oriented X3 and moving all extremities Routine Psychiatric Exam Psychiatric: Present normal affect DS: Diagnosis Discharge Diagnosis (1) 36 weeks gestation of : Status: Acute (2) Oligohydramnios in bee in third trimester: Status: Acute (3) Genetic disease carrier status testing, female: Status: Acute Problem details: carrier: polycystic kidney disease carrier: [id number] syndrome Meds Home Medications an
--- NOTE | 2022-12-06 11:13 | PC.NURSE ---
d/c per yocasta CASTILLO prior to delivery on 11/21/2022 at 3549
== END 2022-11-23 11:15 | disposition home or self-care (01) | DRG 807 ==
PROVIDERS: Admitting Provider Obstetrics & Gynecology; PCP Physician Assistant; Visit Provider Obstetrics & Gynecology
DX: O41.03X0 Oligohydramnios, third trimester, not applicable or unspecified (principal); Z37.0 Single live birth; Z3A.36 36 weeks gestation of pregnancy
CPT/HCPCS: 59409; 36415; 59025; 80305; 81001; 85014; 85018; 85025; 86850; 87086; 94761; C1758; C9803; G0283; U0003; U0005

== ENCOUNTER → 2023-02-05 14:54 | Outpatient (CLI) | payer BC, SELFPAY ==
--- NOTE | 2023-02-05 14:55 | US_ITS ---
PROCEDURE: US PELVIC CLINICAL INDICATION: Right lower quadrant pain, transabdominal approach COMPARISON: No exams were available for comparison FINDINGS: There is a palpable nodule in the right lower quadrant. There is a mass here that measures approximately 18 millimeters. This could be a hernia or possibly endometriosis. There appears to be a defect in the fascia here. IMPRESSION: 1. There appears to be a mass with a defect through the fascia in the right lower quadrant. 2. There is a palpable nodule here. 3. This could be a fascial defect or possibly endometriosis. 4. Suggest a CT scan or MRI to better visualize this area. Dictated by: Bert Ravi MD 02/05/2023 19:32 Bert Ravi MD in OV 02/05/2023 19:32
--- NOTE | 2023-02-05 14:55 | US_ITS ---
PROCEDURE: US TRANSVAGINAL CLINICAL INDICATION: pelvic pain COMPARISON: No exams were available for comparison FINDINGS: UTERUS: 7cm x 6cmx 3cm with a combined endometrial thickness of 3.6mm. The uterus is anteverted. LEFT OVARY: [id number] with a volume of 5.6ml.There are several small follicles in the left ovary. RIGHT OVARY: 3cmx 1mhu0oo with a volume of 6.2ml. Several small follicles in the right ovary. Both ovaries are seen and appear normal. Doppler flow to both ovaries are seen. There is no fluid in the cul-de-sac. IMPRESSION: 1. The uterus is anteverted and normal in shape and size with a thin endometrium. 2. Both ovaries are seen and appear normal. There are several small follicles on each ovary. 3. No fluid in the cul-de-sac. Dictated by: Bert Ravi MD 02/05/2023 19:40 Bert Ravi MD in OV 02/05/2023 19:40
== END ==
PROVIDERS: PCP Physician Assistant; Visit Provider Obstetrics & Gynecology
DX: R10.2 Pelvic and perineal pain (principal); R19.00 Intra-abdominal and pelvic swelling, mass and lump, unspecified site
CPT/HCPCS: 76830; 76856

== ENCOUNTER → 2023-03-05 10:41 | Outpatient (CLI) | payer BC, SELFPAY ==
--- NOTE | 2023-03-05 10:41 | CT_ITS ---
FINAL REPORT TECHNIQUE: Thin section axial images were obtained from the lung bases to the pubic symphysis without IV contrast. Coronal reconstruction images were obtained from the axial data. Exam was performed using dose reduction technique. CLINICAL HISTORY: umbilical hernia, oral contrast only COMPARISON: None FINDINGS: There are no renal or ureteral stones. There is no hydronephrosis or perinephric stranding. Gallstones are present in the gallbladder. The remaining unenhanced solid abdominal organs are unremarkable. There is no evidence of small bowel obstruction. The appendix is normal. A large amount of stool is present in the colon. There is a fat-containing umbilical hernia present. At the level of the hernia there is diastasis of the rectus muscle and small bowel protrudes through the diastasis. There is no lymphadenopathy or ascites. No acute osseous abnormality is identified. IMPRESSION: There is a fat-containing umbilical hernia, and at the level of the hernia there is diastasis of the rectus muscles, and there is a small loop of small bowel that protrudes into the diastasis. Reviewed, Interpreted and Dictated by Danna Hassan MD Transcribed by Leslie Rios Authenticated and . [facility]
== END ==
PROVIDERS: PCP Physician Assistant; Visit Provider Surgery
DX: K42.9 Umbilical hernia without obstruction or gangrene (principal)
CPT/HCPCS: 74176

== ENCOUNTER → 2023-06-23 07:59 | Outpatient (CLI) | payer BC, SELFPAY ==
--- NOTE | 2023-06-23 07:59 | US_ITS ---
FINAL REPORT TECHNIQUE: Sonographic images of the right upper quadrant were obtained. CLINICAL HISTORY: Gallstones COMPARISON: None FINDINGS: PANCREAS: Unremarkable. LIVER: Homogeneous. No focal hepatic lesion. No intrahepatic biliary ductal dilatation. GALLBLADDER: Multiple gallstones are present in the gallbladder.. No gallbladder wall thickening or pericholecystic fluid. COMMON DUCT: 3 mm. Normal for age. RIGHT KIDNEY: The right kidney measures 11.4 cm. There is no hydronephrosis, mass, or stone. FREE FLUID: None. IMPRESSION: Multiple gallstones. Reviewed, Interpreted and Dictated by Danna Hassan MD Transcribed by Leslie Rios Authenticated and [facility]
== END ==
PROVIDERS: PCP Physician Assistant; Visit Provider Surgery
DX: R10.11 Right upper quadrant pain (principal)
CPT/HCPCS: 76705

== ENCOUNTER 2023-07-07 09:35 | Emergency (ER) | payer BC, SELFPAY ==
[2023-07-07 09:45] VITALS: BP 119/91; PULSE 123; RESP 12; TEMP 37.7; O2SAT 97; BMI 23.3
--- NOTE | 2023-07-07 10:10 | EXP.UTC ---
Discharge Plan Disposition Patient Disposition: Home, Self-Care Condition: Good Prescriptions Prescriptions: New dicloxacillin 500 mg capsule 500 mg PO Q6H 10 Days Qty: 40 0RF Referrals Follow up/Referrals: Imani Puente PA [Primary Care Provider] - See instructions Activity Restrictions/Add. Instructions Additional Instructions/Restrictions: Take medication as prescribed Antibiotics.?If you have an infection, a 10-day course of antibiotics is usually needed. It's important to take all of the medication to minimize your chance of recurrence. If your mastitis doesn't clear up after taking antibiotics, follow up with your doctor. Pain relievers.?Your doctor may recommend an [id number] pain reliever, such as acetaminophen It's safe to continue breast-feeding if you have mastitis. Breast-feeding actually helps clear the infection. Weaning your baby abruptly is likely to worsen your signs and symptoms. Massaging the breast while breast-feeding or pumping, from the affected area down toward the nipple. Making sure your breast drains completely during breast-feeding. If you have trouble emptying a portion of your breast, apply warm and moist heat to the breast before breast-feeding or pumping milk. Breast-feeding on the affected side first, when your infant is hungrier and sucking more strongly. Follow up with your OBGYN if symptoms do not improve and immediately if any worsening of symptoms Clinical Impressions Clinical Impression: Mastitis Instructions Patient Instructions: Mastitis, DI for Mastitis, Dicloxacillin Discharge ED Provider: Trisha Alvarez [facility] [place] H[place] General Stated complaint: pain in right breat, fever 101 Mode of Arrival: Ambulatory Source of Information: Patient Limitations: No Limitations Time Seen by Provider: 07/07/23 10:10 Description of Symptoms (Recalled from Triage Doc. by RN): PATIENT C/O REDNESS AND PAIN TO RIGHT BREAST WITH FEVER THAT STARTED YESTERDAY HEENT Symptoms (Recalled from RN notes): No Resp Symptoms (Recalled from RN notes): No Skin Symptoms (Recalled from RN notes): Yes MS Symptoms (Recalled from RN notes): No Functional Status (Recalled from RN notes): WNL History of Present Illness Provider Complaint: Patient states that she has been under the care of her OBGYN for yeast in right breast around her nipple area and she has been taking diflucan States that seemed to be getting better then States that she noticed yesterday that she was having some redness tenderness and warmth to the upper part of her right breast and had a slight low grade fever States feels like it did before when she had mastitis Related Data Previous Rx's Medication Instructions Recorded dicloxacillin 500 mg capsule 500 mg PO Q6H 10 days #40 caps 07/07/23 Allergies Allergy/AdvReac Type Severity Reaction Status Date / Time No Known Allergies Allergy Verified 06/20/23 09:40 Worker's Comp Is this a Worker's Comp case?: No [facility] Disclaimer: The information contained in this section may have been updated after the patient was seen, as this information can be updated by other users. 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
[2023-07-07 10:16] VITALS: BP 119/91; PULSE 123; RESP 12; TEMP 37.7; O2SAT 97
== END 2023-07-07 10:31 | disposition home or self-care (01) ==
PROVIDERS: Emergency Provider Nurse Practitioner; PCP Physician Assistant
DX: N61.0 Mastitis without abscess (principal); R50.9 Fever, unspecified
CPT/HCPCS: 99212; 99214; G0463

== ENCOUNTER 2023-07-15 17:25 | Emergency (ER) | payer BC, SELFPAY ==
--- NOTE | 2023-07-15 17:52 | EXP.UTC ---
Discharge Plan Disposition Patient Disposition: Home, Self-Care Condition: Good Prescriptions Prescriptions: New sulfamethoxazole-trimethoprim [Bactrim DS] 800-160 mg Tablet 1 tab PO BID Qty: 20 0RF No Action dicloxacillin 500 mg capsule 500 mg PO Q6H 10 Days Qty: 40 0RF Referrals Follow up/Referrals: Imani Puente PA [Primary Care Provider] - See instructions Activity Restrictions/Add. Instructions Additional Instructions/Restrictions: Take tylenol for pain or fever. Please call Dr. Almeida's office in the morning for a follow up appointment and further instructions. Take the bactrim as prescribed. Stop the dicloxacillin. Take the medications as directed. Follow up with your regular doctor. GO TO THE ER FOR ANY WORSENING SYMPTOMS Clinical Impressions Clinical Impression: Mastitis Instructions Patient Instructions: Mastitis, DI for Mastitis, Ceftriaxone Injection Discharge ED Provider: Rene Nicholas [facility] – [place] HPI General Stated complaint: fever, RT breast pain Time Seen by Provider: 07/15/23 17:52 History of Present Illness Provider Complaint: She states that she is having warmth and redness of an area on her right breast. She was treated here for mastitis back on 07/07. She was prescribed dicloxacillin. She states that she has been taking it exactly as prescribed. She seemed to be getting better, but this am her right breast pain, tenderness, warmth and redness came back. Since this am, she has ran a fever up to 103 at times. Related Data Previous Rx's Medication Instructions Recorded dicloxacillin 500 mg capsule 500 mg PO Q6H 10 days #40 caps 07/07/23 sulfamethoxazole 800 1 tab PO BID #20 tabs 07/15/23 mg-trimethoprim 160 mg tablet (Bactrim DS) Allergies Allergy/AdvReac Type Severity Reaction Status Date / Time No Known Allergies Allergy Verified 07/15/23 18:19 [facility] Disclaimer: The information contained in this section may have been updated after the patient was seen, as this information can be updated by other users. 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, female Umbilical hernia Surgical History No history of previous surgery Family History Other No significant family history Social History Smoking Status: Never smoker alcohol intake: never substance use type: denies use current occupational status: unemployed Travel in the last 8 weeks: None household members: family housing: house current occupational exposures/hazards: No caffeine: No ROS Obtained: Yes All systems reviewed & no additional complaints except as documented Constitutional Constitutional: Reports as per HPI, Reports chills and Reports fever(s) Eyes Eyes: Denies eye discharge ENT Ears, Nose, Mouth, and Throat: Denies dizziness, Denies otalgia and Denies sore throat Cardiovascular Cardiovascular: Denies chest pain Respiratory Respiratory: Denies shortness of breath, Denies chest congestion, Denies cough, Denies stridor and Denies wheezing Gastrointestinal Gastrointestingal: Denies nausea or vomiting Musculoskeletal Musculoskeletal: Reports system reviewed and no additional complaints, except as documented and Denies arthralgias Integumentary/Breasts Skin/Breast: Reports as per HPI and Reports breast pain Neurologic Neurologic: Denies dizziness and Denies paresthesias Allergic/Immunologic Allergic/Immunologic: Denies wheezing Physical Exam General General appearance: alert and in no apparent distress Head Head exam: atraumatic, normocephalic and normal inspection Eye Eye exam: Present normal appearance, PERRL and EOMI ENT ENT exam: Present normal exam, normal oropharynx, mucous me
[2023-07-15 18:00] VITALS: BP 127/86; PULSE 128; RESP 18; TEMP 39.6; O2SAT 96; BMI 22.7
[2023-07-15 19:37] LABS: Basophils % 0.2 % (0.1-2.0); Eosinophils # 0.1 K/mm3 (0.0-0.4); Eosinophils % 0.5 % (0.1-12.0); Hematocrit 44.4 % (37.0-47.0); Hemoglobin 14.9 g/dL (12.2-16.2); Lymphocytes # 0.9 K/mm3 (0.7-4.5); Lymphocytes % 6.9 % (10-50); Mean Corpuscular HGB Conc 33.7 g/dL (31.8-35.4); Mean Corpuscular Hemoglobin 31.3 pg (27.0-31.2); Mean Corpuscular Volume 92.9 fl (81-99); Mean Platelet Volume 8.9 fl (7.4-10.4); Monocytes # 0.3 K/mm3 (0.1-1.0); Monocytes % 2.4 % (1.7-9.3); Neutrophils % 89.9 % (37.0-80.0); Platelet Count 344 K/mm3 (142-424); Red Blood Count 4.77 M/mm3 (4.20-5.40); Red Cell Distribution Width 13.2 % (11.5-17.5); White Blood Count 13.4 K/mm3 (4.8-10.8)
[2023-07-15 19:38] LABS: MANUAL DIFFERENTIAL MANUAL DIFFERENTIAL (MANUAL DIFF)
[2023-07-15 19:44] LABS: Chloride 103 mmol/L (98-107); Sodium 141 mmol/L (136-145)
[2023-07-15 19:45] LABS: Potassium 3.6 mmoL/L (3.5-5.1)
[2023-07-15 19:46] LABS: Eosinophils % 1 % (0-3); Lymphocytes % 9 % (10-50); Monocytes % 2 % (2-9); Neutrophils % 88 % (42-76); Platelet Estimate Normal; RBC Morphology Normal; Total Cells Counted 100
[2023-07-15 19:47] LABS: Anion Gap 15.6 mEq/L (5-15); Blood Urea Nitrogen 11 mg/dl (7-17); Carbon Dioxide 26 mmol/L (22.0-30.0); Creatinine Clearance Estimated 125 mL/min (50-200); Estimated Glomerular Filt Rate 100 ml/min (>60); GFR (African American) 121 ML/MIN (>60)
[2023-07-15 19:48] LABS: Calcium 9.4 mg/dl (8.4-10.2); Glucose 125 mg/dl (74-100)
[2023-07-15 21:09] VITALS: BP 127/86; PULSE 128; RESP 18; TEMP 38; O2SAT 96
== END 2023-07-15 20:20 | disposition home or self-care (01) ==
PROVIDERS: Emergency Provider Nurse Practitioner Family; PCP Physician Assistant
DX: N61.0 Mastitis without abscess (principal); R50.9 Fever, unspecified
CPT/HCPCS: 80048; 85007; 85025; 96372; 99212; 99214; G0463; J0696

== ENCOUNTER → 2023-07-16 12:48 | Outpatient (CLI) | payer BC, SELFPAY ==
--- NOTE | 2023-07-16 12:51 | US_ITS ---
PROCEDURE INFORMATION: Exam: US Right Breast, Complete Exam date and time: 07/16/2023 12:57 PM Age: 28 years old Clinical indication: Breast pain; Right; Currently breast feeding -- on antibiotics since yesterday TECHNIQUE: Imaging protocol: Complete ultrasound of all four quadrants of the right breast and the retroareolar regions, including ultrasound of the axilla when performed. COMPARISON: No relevant prior studies available. FINDINGS: Breast: Sonographic images of the right breast including the retroareolar region, all 4 quadrants and the axilla do not demonstrate any solid masses. Marked duct ectasia is noted throughout the right breast . However, subtending the area of skin redness are focally thick walled dilated ducts. Wall thickening may be seen during however given that it is only seen in the quadrant where the patient reports overlying skin changes, this raises the possibility of focal mastitis or an obstructive duct/galactocele. This is particularly noted in the 10 o'clock axis 2 cm from the nipple where a markedly expanded thick walled duct measures 2.2 x 1.0 cm. No architectural distortion or acoustical shadowing. No skin thickening or axillary adenopathy. IMPRESSION: Marked duct ectasia consistent with the current lactational state. However, the ducts appear particularly thick walled in the region of clinical concern raising the possibility of either duct obstruction with galactocele or focal mastitis. Targeted sonogram is recommended following the completion of antibiotic therapy to ensure resolution of the findings and in the absence of worsening clinical symptoms. ASSESSMENT: BI-RADS Category 3: Probably benign
== END ==
PROVIDERS: PCP Physician Assistant; Visit Provider Obstetrics & Gynecology
DX: N61.0 Mastitis without abscess (principal)
CPT/HCPCS: 76641

== ENCOUNTER → 2023-07-29 13:01 | Outpatient (CLI) | payer BC, SELFPAY ==
--- NOTE | 2023-07-29 13:06 | US_ITS ---
PROCEDURE INFORMATION: Exam: US Right Breast, Complete Exam date and time: 07/29/2023 1:10 PM Age: 28 years old Clinical indication: Breast pain; Breast feeding TECHNIQUE: Imaging protocol: Complete ultrasound of all four quadrants of the right breast and the retroareolar regions, including ultrasound of the axilla when performed. COMPARISON: US BREAST RT COMPLETE 07/16/2023 12:57 PM FINDINGS: Breast: Sonographic images of the right breast including the retroareolar region, all 4 quadrants and the axilla do not demonstrate any solid or cystic masses. Marked duct dilatation compatible with current lactational state is a benign finding. Previously noted thick-walled ducts have resolved. No breast edema. No architectural distortion or acoustical shadowing. No skin thickening or axillary adenopathy. IMPRESSION: Resolution of previously noted thick wall duct dilatation suggestive of mastitis. ASSESSMENT: BI-RADS Category 1: Negative
== END ==
PROVIDERS: PCP Physician Assistant; Visit Provider Obstetrics & Gynecology
DX: O91.12 Abscess of breast associated with the puerperium (principal); N61.1 Abscess of the breast and nipple
CPT/HCPCS: 76641

== ENCOUNTER 2023-10-08 12:17 | Outpatient (CLI) | payer BC, SELFPAY ==
[2023-10-08 12:41] LABS: Basophils # 0.1 K/mm3 (0-0.2); Basophils % 0.8 % (0.1-2.0); Eosinophils # 0.2 K/mm3 (0.0-0.4); Eosinophils % 2.5 % (0.1-12.0); Hematocrit 41.4 % (37.0-47.0); Hemoglobin 13.9 g/dL (12.2-16.2); Lymphocytes # 2.4 K/mm3 (0.7-4.5); Lymphocytes % 39.4 % (10-50); Mean Corpuscular HGB Conc 33.5 g/dL (31.8-35.4); Mean Corpuscular Hemoglobin 31.7 pg (27.0-31.2); Mean Corpuscular Volume 94.4 fl (81-99); Mean Platelet Volume 10.3 fl (7.4-10.4); Monocytes # 0.4 K/mm3 (0.1-1.0); Monocytes % 6.8 % (1.7-9.3); Neutrophils % 50.5 % (37.0-80.0); Platelet Count 227 K/mm3 (142-424); Red Blood Count 4.38 M/mm3 (4.20-5.40); Red Cell Distribution Width 13.5 % (11.5-17.5)
[2023-10-08 12:43] LABS: Urine Pregnancy, HCG Qual. Negative (Negative)
[2023-10-08 13:35] LABS: Alanine Aminotransferase 22 U/L (12-78); Albumin Level 4.6 g/dl (3.5-5.0); Albumin/Globulin Ratio 1.7 (1.1-1.8); Alkaline Phosphatase 74 U/L (38-126); Anion Gap 10.7 mEq/L (5-15); Aspartate Amino Transferase 25 U/L (14-36); Bilirubin,Total 0.6 mg/dl (0.2-1.3); Blood Urea Nitrogen 16 mg/dl (7-17); Calcium 8.9 mg/dl (8.4-10.2); Carbon Dioxide 28 mmol/L (22.0-30.0); Chloride 102 mmol/L (98-107); Estimated Glomerular Filt Rate 120 ml/min (>60); GFR (African American) 145 ML/MIN (>60); Globulin 2.7 g/dL (1.3-3.2); Glucose 74 mg/dl (74-100); Potassium 3.7 mmoL/L (3.5-5.1); Sodium 137 mmol/L (136-145); Total Protein,Serum 7.3 g/dl (6.3-8.2)
== END 2023-10-08 23:59 ==
LOC: LAB 12:17
PROVIDERS: PCP Physician Assistant; Visit Provider Surgery
DX: K42.9 Umbilical hernia without obstruction or gangrene (principal)
CPT/HCPCS: 36415; 80053; 81025; 85025

== ENCOUNTER 2023-10-13 09:21 | Day surgery (SDC) | payer BC, SELFPAY ==
[2023-10-09 12:57] VITALS: BMI 23.1
[2023-10-13] VITALS (9 sets, daily range): BP systolic 110–131; BP diastolic 52–81; PULSE 70–95; RESP 16–18; TEMP 36.6–43; O2SAT 95–100
--- NOTE | 2023-10-13 08:40 | P.HP_ITS ---
HPI HPI HPI: Patient is a pleasant 28-year-old female who presents for cholecystectomy. She had been seen in the office regarding her gallbladder and abdominal wall hernias. She was seen in the office on 03/13/2023 at which time she was approximately 3 months from vaginal delivery. She had symptoms consistent with right lower quadrant hernia since her delivery. She did have an ultrasound of the area which revealed a mass with defect in the fascia which was felt to be possibly fascial defect or possibly endometriosis. She also noted bulge at the umbilical area but was relatively asymptomatic. On examination she did have a small umbilical hernia but she also had clinical history consistent with probable spigelian type hernia. I had her undergo CT scan which revealed interestingly no evidence of any hernia in the right lower quadrant but there was a small hernia at her umbilicus with a loop of bowel and also what appeared to be the large amount of gallstones in her gallbladder. Her symptoms have been relatively controlled but she has had some occasional minor GI symptoms occurring postprandially. I informed her that she likely would need surgery but this is not an urgent situation. I had scheduled her for an ultrasound of the gallbladder and follow-up for possible surgery. She has not had any additional issues or symptoms from the right lower quadrant. Gallbladder ultrasound was done on 06/23/2023 which revealed multiple gallstones with normal common bile duct. She has had some increasing symptomatology from her gallbladder. [facility] Disclaimer: The information contained in this section may have been updated after the patient was seen, as this information can be updated by other users. 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 Umbilical hernia Surgical History No history of previous surgery Family History Grandmother Cancer maternal-breast Social History Smoking Status: Never smoker alcohol intake: never substance use type: denies use current occupational status: unemployed Travel in the last 8 weeks: None household members: family housing: house current occupational exposures/hazards: No caffeine: No Meds Home Medications and Allergies Home Medications Medication Instructions Recorded Confirmed Type No Known Home Medications 10/13/23 10/13/23 History New Prescriptions to Start Prescriptions: Allergies Allergy/AdvReac Type Severity Reaction Status Date / Time adhesive tape Allergy Verified 10/13/23 09:36 Exam Data for Last 24 hours I & O for Last 24 hours: Intake & Output 10/10/23 10/11/23 10/12/23 10/13/23 11:59 11:59 11:59 11:59 Weight 148 lb Constitutional Constitutional: no acute distress *Routine HEENT Exam Head: Present normocephalic Eye: Present EOMI and PERRL ENT: Present mucous membranes moist *Routine Neck Exam Neck: Present supple; Absent lymphadenopathy *Routine Respiratory Exam Respiratory: Present CTA bilaterally *Routine Cardiovascular Exam Cardiovascular: Present RRR *Routine Abdominal Exam Abdominal: Present soft and normoactive bowel sounds; Absent tenderness *Routine Rectal Exam Rectal:: deferred *Routine Genitalia Exam Genitalia:: deferred *Routine Extremities Exam Extremities: Absent cyanosis, clubbing or edema *Routine Skin Exam Skin: Present warm; Absent rash *Routine Neurological Exam Neurological: Present alert and oriented X3 Assessment and Plan *Assessment and plan (1) Gallstones: Status: Acute Category: Medical Code(s): K80.20 - Calculus of gallbladder without cholecystitis without obstruction Plan Cholecystectomy would be reasonable given her symptoms and findings on ultrasound. I discussed this with her. She would like to pursue cholecystectomy. Plan will be for laparoscopic possibly open cholecystectomy with primary repair of umbilical hernia. Also plan for inspection of the right lower quadrant to evaluate for any hernia defect although the given her CT scan and symptoms this seems less likely.
[2023-10-13] MEDS: LACTATED RINGERS 1000ML 1,000 ML 25 ML IV (09:37)
--- NOTE | 2023-10-13 10:04 | P.PNANES_ITS ---
[facility] Disclaimer: The information contained in this section may have been updated after the patient was seen, as this information can be updated by other users. 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, female carrier: polycystic kidney disease carrier: [id number] syndrome Umbilical hernia Surgical History No history of previous surgery Family History Grandmother Cancer maternal-breast Social History Smoking Status: Never smoker alcohol intake: never substance use type: denies use current occupational status: unemployed Travel in the last 8 weeks: None household members: family housing: house current occupational exposures/hazards: No caffeine: No H Anesthesia Checklist Patient Identification Patient Identification: Arm Band Structural Data Admitted From: Home Planned Operative Procedure/s: Laparoscopic Cholecystectomy, Umbilical Hernia Repair Consent for Planned Operative Procedure(s) Verified: Yes Verified Documents: Surgical Consent and History and Physical NPO Status Verified Time NPO: 00:00 Additional verifications Anesthesia Reactions: No Hx Blood Transfusions: No Blood Transfusion Reaction: No Airway Assessment Mallampati Score:: Class II C-Spine Mobility Assessed: Yes TMJ Mobility Assessed: Yes Dentition: Good Dentition Neurological Assessment Level of Consciousness: Awake and Alert Anesthesia Plan Anesthesia Risk discussed: Yes Anesthesia Plan: Verified ASA Class: I Anesthesia Type: General
[2023-10-13] MEDS: LIDOCAINE 1% 30ML PF VIAL 30 ML (11:28)
[2023-10-13] MEDS: CEFAZOLIN SODIUM 1 GM in 0.9 % SODIUM CHLORIDE 50 ML IV (11:29)
[2023-10-13] MEDS: ROPIVACAINE 0.5% 30ML VIAL 150 MG (11:29)
[2023-10-13] MEDS: SODIUM CHLORIDE IRRIG SOLUTION 3,000 ML 3000 ML IR (11:30)
--- NOTE | 2023-10-13 12:40 | EXP.OP.NOTE ---
Date of procedure: 10/13/23 Pre-op Diagnosis:: Symptomatic gallstones Umbilical hernia Post-op Diagnosis:: Same Procedure performed:: Laparoscopic cholecystectomy Primary repair of open umbilical hernia Surgeon:: Neftali Victor MD INSTRUCTIONAL DESIGNER:: Brandon Calle Anesthesia: GETPatrice Estimated blood loss (mL): 20 Clinical Note:: Patient is a pleasant 28-year-old female who presents for cholecystectomy. She had been seen in the office regarding her gallbladder and abdominal wall hernias. She was seen in the office on 03/13/2023 at which time she was approximately 3 months from vaginal delivery. She had symptoms consistent with right lower quadrant hernia since her delivery. She did have an ultrasound of the area which revealed a mass with defect in the fascia which was felt to be possibly fascial defect or possibly endometriosis. She also noted bulge at the umbilical area but was relatively asymptomatic. On examination she did have a small umbilical hernia but she also had clinical history consistent with probable spigelian type hernia. I had her undergo CT scan which revealed interestingly no evidence of any hernia in the right lower quadrant but there was a small hernia at her umbilicus with a loop of bowel and also what appeared to be the large amount of gallstones in her gallbladder. Her symptoms had been relatively controlled but she has had some occasional minor GI symptoms occurring postprandially. I informed her that she likely would need surgery but this is not an urgent situation. I had scheduled her for an ultrasound of the gallbladder and follow-up for possible surgery. She has not had any additional issues or symptoms from the right lower quadrant. Gallbladder ultrasound was done on 06/23/2023 which revealed multiple gallstones with normal common bile duct. Plan was made to proceed with laparoscopic possibly open cholecystectomy with repair of hernia. Inspection was to be performed of the right lower quadrant laparoscopically although she has not had any symptoms from this area. She has had more frequent symptoms consistent with symptomatic gallstones. Operative findings:: There was concern for possible right lower quadrant/pelvic hernia on examination when she was under anesthesia. No definite hernia noted laparoscopically but there could be direct right inguinal hernia. She had a small umbilical hernia. She had a distended gallbladder with omental adhesions and numerous moderate-sized gallstones. Operative note:: Consent was obtained and patient was taken the operating room. She was positioned in a supine position. General anesthesia was induced via endotracheal tube. Abdominal inspection and palpation was carried out under anesthesia and there was concern that she may have a right lower quadrant/pelvic hernia. Her abdomen was then prepped and draped in the standard surgical fashion. Subumbilical skin incision was made. Dissection was carried down through subcutaneous tissues to the fascia. The peritoneum adherent to the umbilical subdermis was dissected free and incised. There was a tiny hernia defect. Peritoneum as the hernia sac was excised to normal fascia. Fascial stay sutures were placed. 12 mm blunt Elias trocar was inserted through the defect which actually required some extension of the defect to place this as the hernia defect itself was rather small. Intra-abdominal surveillance was then carried out. Laparoscopic inspection of the right lower quadrant was carried out and there was no evidence of any definite hernia. It is possible she has direct inguinal hernia which could not be visualized at this location but there was no evidence of any definite Spigellian hernia. She was positioned in reverse Trendelenburg left side down. A couple 5 mm trocars were inserted in the right upper abdomen. 10 mm trocar was inserted in the epigastric. Gallbladder was identified and grasped retracted anteriorly and superiorly over the dome of the liver. There were omental adhesions to the gallbladder which were taken down using blunt dissection. Infundibulum of the gallbladder was retracted anterior laterally. Blunt dissection was carried out the neck of the gallbladder bluntly incising the visceral peritoneum. Careful dissection was carried out identifying the cystic duct and cystic artery in the critical view of safety. Cystic duct was isolated, multiply clipped, and sharply divided. Cystic artery was carefully coagulated with GIANCARLO ultrasonic harmonic miguel and divided. Gallbladder was dissected free from the liver in a retrograde fashion using GIANCARLO ultrasonic harmonic miguel. Gallbladder was placed within an Endo Catch retrieval device and removed from the peritoneal cavity via the umbilical trocar site which actually required extension of the fascial defect for delivery as the gallbladder was full of multiple gallstones. Gallbladder fossa was then inspected for hemostasis which was assured. Limited irrigation was performed. Trocars were removed as CO2 pneumoperitoneum was evacuated. Attention was then turned to repair of the fascial defect. Fascial defect was closed with multiple interrupted 0 Ethibond sutures. Umbilical subdermis was reapproximated to the fascia with 2-0 Vicryl. Local anesthetic was infiltrated. Skin incisions were closed with 4-0 Monocryl in a subcuticular fashion. A couple of 5-0 plain gut sutures were placed in the right lateral trocar site. Dermabond and clean dry sterile dressings were applied. Condition: stable Disposition: PACU Complications:: None immediately apparent
--- NOTE | 2023-10-13 12:44 | EXP.ANES.I ---
[facility] Anesthesia Record Part I Anesthesia Record I Intake, IV Amount: 1,800 Hydration: Adequate Estimated blood loss (mL): 10 Urine output (mL): 0 Blood Products used (#): none Blood Pressure: 131/81 SaO2: 95 Pulse Rate: 77 Airway Patency: Patent Respiratory Rate: 16 Temperature: 99.1 F Patient is:: Drowsy and Stable Stable to PACU at:: 12:40
[2023-10-13] MEDS: MORPHINE 2MG/ML SYRINGE 2 MG IV (12:52)
--- NOTE | 2023-10-14 07:15 | EXP.ANES.II ---
[facility] Anesthesia Record Part II Anesthesia Record Part II Discharge Time: 13:10 Destination: Surgical Day Care (OP Surgery) PACU nurse assessment reviewed?: Yes Patient Condition:: Good Anesthesia Complications:: None Swallowing reflex intact?: Yes Airway Patency: Patent Cyanosis?: No Blood Pressure: 112/76 SaO2: 100 Respiratory Rate: 16 Pulse Rate: 72 Temperature: 98 F Mental Status: Alert & Oriented Pain level:: 3 Nausea and/or vomitting:: None Intake, IV Amount: 0 Hydration: Adequate
[2023-10-14 07:16] VITALS: BP 112/76; PULSE 72; RESP 16; TEMP 36.6; O2SAT 100
== END 2023-10-13 13:27 | disposition home or self-care (01) ==
PROVIDERS: PCP Physician Assistant; Visit Provider Surgery
PROC: 0FT44ZZ Resection of Gallbladder, Percutaneous Endoscopic Approach (ICD-10-PCS; CPT 47562; principal; 2023-10-13 10:45)
DX: K46.9 Unspecified abdominal hernia without obstruction or gangrene; K80.10 Calculus of gallbladder with chronic cholecystitis without obstruction; K42.9 Umbilical hernia without obstruction or gangrene
CPT/HCPCS: 47562; 49593; 96374; J3490; J2405

== ENCOUNTER 2024-06-18 11:06 | Emergency (ER) | payer BC, SELFPAY ==
[2024-06-18 11:06] VITALS: BP 114/73; PULSE 71; RESP 14; TEMP 36.7; O2SAT 100; BMI 22.7
--- NOTE | 2024-06-18 11:08 | XR_ITS ---
PROCEDURE INFORMATION: Exam: XR Left Knee Exam date and time: 06/18/2024 11:16 AM Age: 29 years old Clinical indication: Screening exam; Reduced patellar dislocation TECHNIQUE: Imaging protocol: Radiologic exam of the left knee. Views: 3 views. COMPARISON: No relevant prior studies available. FINDINGS: Bones/joints: Patella is high-riding consistent with patella Nicky. Alignment is otherwise unremarkable. No evidence of fracture, dislocation or underlying bone lesion. Joint surfaces are preserved. Soft tissues: Unremarkable. IMPRESSION: Patella Nicky. No acute bony abnormalities.
[2024-06-18 11:16] VITALS: BP 117/78; PULSE 84; O2SAT 100
[2024-06-18 11:45] VITALS: BP 117/78; PULSE 77; O2SAT 99
--- NOTE | 2024-06-18 12:09 | HMH.EDGENADL ---
Discharge Plan Disposition Patient Disposition: Home, Self-Care Condition: Good Prescriptions Prescriptions: No Action multivitamin Tablet 1 tab PO DAILY Referrals Follow up/Referrals: Johan Camacho DO [Staff Physician] - See instructions (L lateral patellar subluxation) Activity Restrictions/Add. Instructions Additional Instructions/Restrictions: You were evaluated in the ER and are appropriate for discharge at this time. Wear the knee immobilizer until evaluated by orthopedics. You can take it off to shower/bathe. Use crutches to get around, no weight on the Left Leg. Take your leg out of the immobilizer and massage the muscles of the leg without bending the knee multiple times a day to reduce the risk of blood clot. Call Dr. Camacho's office today to schedule an appointment for immediate follow-up. Return to the ER with new, worsening, or otherwise concerning symptoms Clinical Impressions Clinical Impression: Lateral subluxation of left patella Print Language Print Language: Persian Discharge ED Provider: Mark Sommers Adult [facility] General Chief complaint: PAIN Stated complaint: Knee Pain Time Seen by Provider: 06/18/24 11:08 Mode of Arrival: EMS Source of Information: Patient Limitations: No Limitations Description of Symptoms (Recalled from ER Triage Doc. by RN): pt presents to ED for patella dislocation. pt reports she was leaning over a bed attempting to grab a shoe. pt reports that she twisted funny and felt pain. upon EMS arrival obvious dislocation. with movement onto stretcher dislocation resolved. pt reports 1/10 pain. LEFT History of Present Illness HPI narrative: 29-year-old female presents to the ER with acute left knee pain. Patient states she was leaning over a bed and twisting attempting to grab a shoe when she suddenly felt pain. On EMS arrival, patella was reportedly obviously dislocated laterally. EMS reports when they helped her up and extended the leg as she got on the stretcher, the patella reduced. Patient did receive IV fentanyl and Zofran and route according to EMS. Patient is now reporting 1 out of 10 pain. She states she has done this previously back in high school. Patient reports no other injuries or complaints. She has full feeling distal to the injury. Related Data Home Medications ?Medication ?Instructions ?Recorded ?Confirmed multivitamin 1 tab PO DAILY 03/30/24 04/28/24 Allergies Allergy/AdvReac Type Severity Reaction Status Date / Time adhesive tape Allergy Verified 04/28/24 13:43 [facility] Disclaimer: The information contained in this section may have been updated after the patient was seen, as this information can be updated by other users. Medical History (Updated 06/18/24 @ 11:17 by Mark Sommers MD) No significant past medical history Surgical History (Updated 04/28/24 @ 13:50 by PAMELA Reeves) History of laparoscopic cholecystectomy Family History Grandmother Cancer maternal-breast Social History (Updated 04/28/24 @ 13:49 by PAMELA Reeves) Smoking Status: Never smoker alcohol intake: never substance use type: denies use current occupational status: other Travel in the last 8 weeks: None household members: family housing: house current occupational exposures/hazards: No caffeine: No Other Medical History Have you received the Flu Vaccine for this season: No Have you received the Pneumonia Vaccine: No ROS Obtained: Yes Systems reviewed as appropriate & no additional complaints except as documented Positive ROS per HPI Physical Exam General General appearance: alert and in no apparent distress Head Head exam: atraumatic and normocephalic Eye Eye exam: Present PERRL and EOMI ENT ENT exam: Present mucous membranes moist Neck Neck exam: Present normal inspection and full ROM Chest Chest inspection: Present symmetric chest wall rise Respiratory Respiratory exam: Absent respiratory distress or stridor Cardiovascular Cardiovascular exam: Present regular rate and normal rhythm Extremities Exam Extremities exam: Present full ROM (Extensor mechanism of left knee intact, patient is able to flex with pain.), normal capillary refill, joint swelling (Mild swelling of the left knee, patella feels well-seated at midline of the knee) and other (Neurovascularly intact distally in left lower extremity, no other injuries); Absent tenderness or edema Neurological Exam Neurological exam: Present alert and oriented X3; Absent motor sensory deficit Psychiatric Psychiatric exam: Present normal affect and normal mood Skin Skin exam: Present warm and dry Medical Decision Making Medical Records Screening: Per USPSTF and CDC recommendations, given the prevalence of disease in our region, it is our hospital?s policy to screen for HIV and viral Hepatitis for all patients aged 18 and over and those with ongoing risk factors. Ac Inquiry Pt receiving controlled substance: No Vital Signs: 06/18/24 11:06 06/18/24 11:16 Temperature 98.1 F Temperature Source Oral Pulse Rate 84 Pulse Rate [Left Radial] 71 Respiratory Rate 14 Blood Pressure 117/78 Blood Pressure [Right Arm] 114/73 Blood Pressure Mean [Right Arm] 86 02 Sat by Pulse Oximetry 100 100 Oxygen Delivery Method Room Air Orders (Tests/Meds): ORDERS Category Date Time Status XR knee LT 3V Stat Exams 06/18/24 11:08 Completed HIV (1&2) Antibody Rapid Stat Lab 06/18/24 11:13 Ordered Hep C Ab with Reflex to RNA Stat Lab 06/18/24 11:13 Ordered Medical Decision Narrative: In summary, 29-year-old female presents to the ER with concerns of left knee pain. Differential diagnosis includes but not limited to fracture, dislocation, patellar subluxation, patellar tendon injury. On initial evaluation patient is hemodynamically stable, afebrile, she has some swelling of the left knee but extensor mechanism is intact, patella is well-seated at the midline. Neurovascularly intact distally, no other findings of injury. X-ray left knee was ordered. I appreciate no acute fracture or dislocation on my personal interpretation of the x-ray. See radiology read for final interpretation. Patient was placed in a knee immobilizer and provided crutches as well as outpatient follow-up with Dr. Camacho with orthopedics. Patient was given instructions on symptomatic management, follow up instructions, and return precautions for the emergency department. Patient indicated understanding and was discharged in stable condition. Critical Care Critical Care Time Critical Care Time: No
[2024-06-18 12:28] VITALS: BP 117/78; PULSE 77; RESP 14; TEMP 36.7
== END 2024-06-18 12:29 | disposition home or self-care (01) ==
PROVIDERS: Emergency Provider Emergency Medicine; PCP Physician Assistant
DX: S83.105A Unspecified dislocation of left knee, initial encounter (principal); X50.0XXA Overexertion from strenuous movement or load, initial encounter
CPT/HCPCS: 73562; 99283

== ENCOUNTER 2024-07-06 15:26 | Outpatient (RCR) | payer BC, SELFPAY | END 2024-07-06 16:30 | disposition home or self-care (01) | LOC: PT 15:26 | PROVIDERS: Visit Provider Physician Assistant Surgical | DX: M25.562 Pain in left knee (principal); S83.002A Unspecified subluxation of left patella, initial encounter | CPT/HCPCS: 97760 ==

== ENCOUNTER 2024-08-09 09:00 | Outpatient (RCR) | payer BC, SELFPAY ==
--- NOTE | 2024-07-12 11:59 | HMH.PTOPEV ---
PT Outpatient Evaluation Rehab PT Outpatient Evaluation Start: 07/12/24 10:01 Freq: Status: Active Protocol: Document 07/12/24 10:43 RAMIN (Rec: 07/12/24 11:58 RAMIN [id number]) E-signed By Dagoberto Topete, PT Outpatient Therapy Subjective History Subjective History This is the initial PT evaluation for Sarahy Johnson. Pt is a 29 yo female pt presents s/p 4 weeks L patellar subluxation. Pt states she was sitting on her bed when she turned to reach for a pair of shoes leaving her L LE on the ground when the L patella subluxed laterally. She reports a history of injuries in the L knee that include a former subluxation, PCL tear, LCL tear, and MCL tear all occurring while playing high school soccer. She reports c/o mild pain and tenderness along the medial aspect of the L knee and swelling within the L knee. Pt denies any numbness, tingling, and/or distal symptoms. She is able to relieve her symptoms w/ ice at home. Currently, she is limited w/ squatting tasks. Pain today is a 0/10 and at worst 3/10. Pt presents w/ a T Rom brace set at 0-90 this date. Chief Complaint Pain,Swelling,Weakness Symptom Type Ache Symptoms Relieved By Ice Symptoms Aggravated By Physical Activity Prior Functional Limitations None Current Functional Limitations Squatting Symptom Description Activity Dependent Level of pain today (0-10) 0 Pain scale - at its best (0-10) 0 Pain scale - at its worst (0-10) 3 Hip/Knee Eval Gait Observation General Gait Pattern Observation No Deviations/Normal Palpation Tenderness left Knee Palpation Finding None/Normal MMT bilateral Hip Flexion Strength Grade Not Tested Hip Abduction Strength Grade Not Tested Hip Adduction Strength Grade Not Tested Hip Extension Strength Grade Not Tested Gluteus Last Strength Grade Not Tested Hip External Rotation Strength Grade Not Tested Hip Internal Rotation Strength Grade Not Tested Knee Strength Reason Not Measured Orthopedic Precautions Knee Extension Strength Grade Not Tested Knee Flexion Strength Grade Not Tested ROM right Knee Extension Active Range of Motion ( 0 degrees) Knee Flexion Active Range of Motion ( 151 degrees) left Knee Extension Active Range of Motion ( 0 degrees) Knee Flexion Active Range of Motion ( 122 degrees) Effusion joint effusion knee exam standard left Mid - Patellar Circumerential Measure ( 36.0 cm) Lower Extremity Functional Index Activities Today, do you or would you have any difficulty at all with: a.Any of your usual work, housework or A little bit of difficulty school activities b. Your usual hobbies, recreational or A little bit of difficulty sporting activities c. Getting into or out of the bath No difficulty d. Walking between rooms No difficulty e. Putting on your shoes or socks No difficulty f. Squatting Quite a bit of difficulty g. Lifting an object, like a bag of No difficulty groceries from the floor h. Performing light activities around No difficulty your home i. Performing heavy activities around A little bit of difficulty your home j. Getting into or out of a car No difficulty k. Walking 2 blocks No difficulty l. Walking a mile A little bit of difficulty m. Going up or down 10 stairs (about 1 A little bit of difficulty flight of stairs) n. Standing for 1 hour No difficulty o. Sitting for 1 hour No difficulty p. Running on even ground Moderate difficulty q. Running on uneven ground Moderate difficulty r. Making sharp turns while running fast Moderate difficulty s. Hopping Moderate difficulty t. Rolling over in bed No difficulty LEFI Score Lower Extremity Functional Index Score 64 Miscellaneous Dx PT Eval Objective Objective Effusion: Mid patellar measurements L: 36.0 cm R: 35.0 cm Outpatient Therapy Assessment Impairments Problems/Impairmments Impaired Range of Motion, Impaired Strength,Impaired Walking,Impaired Squatting, Impaired Recreational Activities,Impaired Running, Impaired Jumping,Subjective C/ O Pain Prognosis Rehab Potential Good Comment Pt has a good rehab potential Clinical Impression Consistent with Diagnosis Yes Consistent with patellar subluxation Short Term Goals Number of Weeks 2 Increase Range of Motion Yes: increase knee flexion by 10 degrees Increase Strength Yes: 4/5 strength throughout L knee Increase Ability to Walk Yes: able to walk 1 mile w/ < 2/10 pain Improve Ability to Climb Stairs Yes: able to climb 10 stairs w / <2/10 pain Improve Ability to Squat Yes: able to perform 5 squats w/ < 2/10 pain Improve LEFI Score Yes: improve score by 4 points Decrease Edema Yes: equal mid patellar measurements Decrease Subjective C/O Pain Yes: pain at worst no greater than 2/10 Patient to be Ind w/ HEP Yes: handout provided w/ written instructions and illustrations Scratch Finisher Goals Number of Weeks 4 Increase Range of Motion Yes: increase knee flexion by 20 degrees Increase Strength Yes: 5/5 throughout LE Increase Ability to Walk Yes: able to walk 1 mile w/o pain Improve Ability For Household Care Yes: able to perform w/ 0/10 pain Improve Ability to Climb Stairs Yes: able to climb 10 stairs w / 0/10 pain Improve Ability to Squat Yes: able to perform 10 squats w/ 0/10 pain Improve LEFI Score Yes: improve score by 8 points Decrease Edema Yes: equal mid patellar measurements INEZ knees Decrease Subjective C/O Pain Yes: 0/10 pain Patient to be Ind w/ Advanced HEP Yes: yes Outpatient Therapy Plan of Care Treatment Plan May Include Therapeutic Exercise Including Home Yes Exercise Program Manual Therapy Techniques Yes Neuromuscular Re-education Yes Therapeutic Activities to Return to Yes Previous Functional/Work Level Gait Training Yes ADL/Self Care Education Yes Dry Needling Yes Thermal Modalities Yes Electrical Stimulation Yes Ultrasound/Phonophoresis Yes Iontophoresis Yes Vasopneumatic Compression Pump Yes Massage Yes Manual Lymphatic Drainage Yes Eval/Re-Eval Yes Frequency Times per week 2 Duration Number of Weeks 4-6 Addendums This patient is a candidate for social No or vocational rehab? Patient/Guardian verbally acknowledges Yes understanding of treatment program and consents to further treatment? Patient/Guardian verbally acknowledges Yes understanding of diagnosis, prognosis and goals for treatment? Eval Complexity PT Charges 85989 - Moderate Complexity Shoulder/Elbow Eval Shoulder Objective Measurements Elbow Objective Measurements PHYSICIAN CERTIFICATION: I certify the specified therapy services for Sarahy Johnson are required, authorized, and reviewed every 30 days.
== END 2024-08-09 23:59 | disposition home or self-care (01) ==
LOC: PT 09:00
PROVIDERS: PCP Physician Assistant; Visit Provider Physician Assistant Surgical
DX: M25.562 Pain in left knee (principal); S83.002A Unspecified subluxation of left patella, initial encounter
CPT/HCPCS: 97014; 97110; 97163; 97530; G0283

== ENCOUNTER 2025-04-11 09:25 | Outpatient (CLI) | payer BC, SELFPAY ==
--- OUTSIDE RECORDS SUMMARY | 2025-04-13 12:09 | XMS_ITS | Clinical Summary ---
Author Organization [facility] Address [address] [place] [address] Care Team Providers Care Needle Leader Name Role Phone Herb Underwood MD Primary Care Provider [phone] Allergies No known active allergies Medications Vit-Fe Fumarate-FA ( ) 27-1 MG tablet tablet Take 1 tablet by mouth Daily. Active Active Problems Problem Noted Date Diagnosed Date Oligohydramnios in third trimester 11/18/2022 12/11/2018 35 weeks gestation of 11/02/2018 Family History Medical History Relation Name Comments Hypertension Father Cancer Maternal Grandmother Relation Name Status Comments Father Maternal Grandmother Social History Tobacco Use Types Packs/Day Years Used Date Smoking Tobacco: Never Smokeless Tobacco: Never Alcohol Use Standard Drinks/Week Comments Not Currently 0 (1 standard drink = 0.6 oz pur e alcohol) AUDIT-C Answer Date Recorded Frequency of Alcohol Consumption Never 11/02/2018 Average Number of Drinks Not on file 019 Frequency of Binge Drinking Not on file 10/16 Abuse Screen Answer Date Recorded Unsafe at Home or Work/School Not on file Feels Threatened by Someone? Not on file 07/2023 Does Anyone Keep You from Co ntacting Others or Doint Things Outside the Home? Not on file 05/29/2023 Physical Sign of Abuse Present Not on file 1 Housing Stability Answer Date Recorded Current Living Arrangements Not on file 05/18 Potentially Unsafe Housing Conditions Not on lawanda e 05/29/2023 Family and Community Support Answer Aldair e Recorded Help with Day-to-Day Activities Not on file 05/29/2023 Lonely or Isolated Not on file 05/29/2023 Employment Answer Date Recorded Do you want help finding or keeping work or a betsy b? Not on file 05/29/2023 Disabilities Answer Date Recorded Concentrating, Remembering, or Making Decisions Difficulty Not on file 05/29/2023 Doing Errands Independently Difficulty Not on fi le 05/29/2023 Education Answer Date Recorded Help with school or training? Not on file Preferred Language Not on file 05/29/2023 Comments No Sex and Gender Information Value Date Recorded Sex Assigned at Not on file Legal Sex Female 8:12 AM EST Gender Identity Not on file Sexual Orientation Not on file Last Filed Vital Signs Vital Sign Reading Time Taken Comments Blood Pressure 125/66 11/18/2022 11:31 AM EDT Pulse - - Temperature - - Respiratory Rate - - Oxygen Saturation - - Inhaled Oxygen Concentration - - Weight 77.7 kg (171 lb 6.4 oz) 11/18/2022 11:31 AM EDT Height 168.9 cm (5' 6.5 ) 11/18/2022 11:34 AM ED T Body Mass Index 27.25 11/18/2022 11:31 AM EDT Plan of Treatment Health Maintenance Due Date Last Done Comments Annual Gynecologic Pelvic an d Breast Exam 1995 ANNUAL PHYSICAL 11/02/2018 HEPATITIS C SCREENING 11/02/2018 COVID-19 Vaccine (1 - 2023-2 5 season) 2024 INFLUENZA VACCINE 05/18/2025 TDAP/TD VACCINES (2 - Td or Tdap) 01/26/2029 019 Pneumococcal Vaccine 0-49 Aged Out No longer eligible based on patient's age to complete this topic Insurance [facility] PPO Member Subscriber Plan / Payer (Ef fective 2021-Present) Name:Sarahy Shea Relation to Subscriber:Spouse Name:NEIL SHEA Date of :1996 (Home) Address: [address] [place] [address] Payer ID:[id number] (NAIC) Type:Not on file Address: [facility] [address] [place] [id number] Care Teams Needle Leader Relationship Specialty Start Date End Date Herb Underwood MD [address] [place] [id number] PCP - General Family Medicine 10/19/18
== END 2025-04-11 23:59 | disposition home or self-care (01) ==
LOC: LAB.DROPOF 04-13 12:07
PROVIDERS: PCP Nurse Practitioner; Visit Provider Nurse Practitioner
DX: R30.0 Dysuria (principal)
CPT/HCPCS: 87086; 87088; 87186